=== PATIENT | male | born 1965 | race African-American/Black ===

== ENCOUNTER 2020-06-16 11:11 | Emergency (ER) | payer OTHER ==
--- OUTSIDE RECORDS SUMMARY | 2020-06-16 11:52 | XMS REPORT | Continuity of Care Document ---
:1965 Author Organization [facility] t Address [address] [place] [address] Care Team Providers Name Role Phone Unavailable Unavailable Unavailable Problems Condition Condition Condition Status Onset Resolution Last Treating Co mments Source Name Details Category Date Date Treatment Clinician Date Other Other Disease Active [place] chest pain chest pain 03-10 alth 00:00: 00 Pain of Pain of Disease Active [place] upper upper Health abdomen abdomen Right-side Right-side Disease Active H arris d thoracic d thoracic alth back pain back pain Allergies, Adverse Reactions, Alerts Allergy Allergy Status Severity Reaction(s) Onset Inactive Treating Comm ents Source Name Type Date Date Clinician Aspirin Propensi Active Itching [place] ty to 03-10 Health adverse 00:00: reaction 00 s to drug Family History Family Member Diagnosis Comments Start Date Stop Date Source Natural father Cancer [facility] Natural mother Heart [facility] Social History Social Habit Start Date Stop Date Quantity Comments Source Sex Assigned At [facility] alth Alcohol intake 2019-02-28 2019-02-28 Current drinker [facility] 00:00:00 00:00:00 of alcohol (finding) Alcohol Comment 2011-08-20 2011-08-20 OCC [facility] alth 00:00:00 00:00:00 Smoking Status Start Date Stop Date Source Never smoker [facility] Medications This patient has no known medications. Procedures This patient has no known procedures. Plan of Care Planned Activity Planned Date Details Comments Source Future Scheduled Test 2020-05-21 00:00:00 IMM Influenza [facility] Seasonal May to October (>/= 19 yrs) [code = IMM Influenza Seasonal May to October (>/= 19 yrs)] Future Scheduled Test 2013 00:00:00 Screening for [facility] malignant neoplasm of colon (procedure) [code = 741868502] Encounters Start End Encounter Admission Attending Care Care Encounter Source Date/Time Date/Time Type Type Clinicians Facility Department ID 2019-02-28 2019-02-28 Emergency [facility] MED [id number] [place] 05:08:21 05:08:21 Health 2019-02-27 2019-02-27 Emergency [facility] [id number] [place] 17:09:26 17:09:26 Health 2018-03-10 2018-03-10 Emergency [facility] [id number] [place] 08:25:29 08:25:29 Health 2018-03-10 2018-03-10 Outpatient [facility] MED [id number] [place] 06:37:44 06:37:44 Health Results This patient has no known results.
--- OUTSIDE RECORDS SUMMARY | 2020-06-16 11:52 | XMS REPORT | Clinical Summary ---
:1965 Author Organization [facility] Address [address] [place] [id number] Care Team Providers Name Role Phone Unavailable Primary Care Provider Unavailable Allergies Active Allergy Reactions Severity Noted Date Comments Aspirin Itching 03/10/2018 No Known Allergies 11/02/2011 Medications No known medications Active Problems Problem Noted Date Other chest pain 03/10/2018 Pain of upper abdomen Right-sided thoracic back pain Family History Medical History Relation Name Comments Cancer Father colon, lung Heart Mother Relation Name Status Comments Father Alive Mother Alive Social History Tobacco Use Types Packs/Day Years Used Date Never Smoker Smokeless Tobacco: Never Used Alcohol Use Drinks/Week oz/Week Comments Yes OCC Sex Assigned at Date Recorded Not on file Job Start Date Occupation Industry Not on file Not on file Not on file Travel History Travel Start Travel End No recent travel history available. Last Filed Vital Signs Not on file Plan of Treatment Health Maintenance Due Date Last Done Comments Colorectal Cancer Scrn Annual (FIT/FOBT) Age 50 to 75 2013 IMM Influenza Seasonal May to October (>/= 19 yrs) 05/21/2020 Results Not on fileafter 06/16/2019 Insurance Payer Benefit Plan / Subscriber ID Effective Dates Phone Addre ss Type Group COMMERCIAL GENERIC COMMERCIAL GENERIC xxxxxxxxx 2017-Present OON (Work)
[2020-06-16 12:36] LABS: Absolute Lymphocytes (CBC) 2.6 K/uL (0.7-4.9); Basophils % 0.9 % (0-1.3); Hematocrit 42.9 % (39.6-49.0); Lymphocytes % 41.9 % (15.3-44.8); MPV 8.3 fL (7.6-11.3); RBC Red Blood Cell Count 4.65 M/uL (4.33-5.43)
[2020-06-16 12:49] LABS: BUN Blood Urea Nitrogen 14 mg/dL (7-18); Bicarbonate 32 mmol/L (21-32); Glucose Level 78 mg/dL (74-106); Potassium 3.9 mmol/L (3.5-5.1); Sodium Level 140 mmol/L (136-145)
--- NOTE | 2020-06-16 12:57 | RAD REPORT ---
EXAM DESCRIPTION: CT - Stone Protocol - 06/16/2020 12:41 pm CLINICAL HISTORY: Flank pain. Abd pain;Flank pain COMPARISON: No comparisons TECHNIQUE: Axial images were obtained without oral or IV contrast. Lack of contrast limits solid org an and vascular assessment. The [id number] spans the entirety of the system partially obscuring uppermost abdomen and lung bases. Coronal reformatted images were obtained and reviewed. All CT scans are performed using dose optimization technique as appropriate and may include automated exposure control or mA/KV adjustment according to patient size. FINDINGS: The lower lung mckenna are clear. Imaged portions of the liver and spleen show no suspicious findings on non-contrast imaging. The panc reas and adrenal glands are normal. No pathologic lymphadenopathy in the abdomen or pelvis. No urinary tract stones or obstructive uropathy. No bowel obstruction, free air, free fluid or abscess. Normal appendix noted. Significant stool is pr esent throughout the colon. No significant bony abnormality. IMPRESSION: No urinary tract stones or obstructive uropathy. Significant stool is present throughout the colon.
[2020-06-16 13:00] LABS: Urine Blood TRACE (NEG); Urine Glucose NEGATIVE (NEG); Urine Protein NEGATIVE (NEG); Urine Specific Gravity 1.025 (1.005-1.030); Urine pH 7.5 (5.0-7.0)
[2020-06-16 13:01] LABS: Urine Bacteria NONE SEEN /HPF (NONE SEEN); Urine Culture Reflex Order NOT NEEDED; Urine RBC <5 /HPF (NONE SEEN)
--- NOTE | 2020-06-16 13:10 | EDPHYS ---
Physician Documentation [facility] Name: Vahe Alexandra Jr Age: 55 yrs Sex: Male : 1965 Arrival Date: 06/16/2020 Time: 11:13 Bed 16 Private MD: ED Physician Tom Sebastian HPI: 06/16 13:05 This 55 yrs old Black Male presents to ER via Ambulatory with complaints of Back Pain. kb 13:05 The patient presents with pain that is acute. kb 13:05 The symptoms are located in the low back. Onset: The symptoms/episode began/occurred 2 kb week(s) ago, and became worse 2 day(s) ago. The pain does not radiate. Associated signs and symptoms: Pertinent positives: abdominal pain, Pertinent negatives: chest pain, constipation, dysuria, fever, headache, hematuria, incontinence, nausea, numbness, tingling, urinary retention, vomiting, weakness. The problem was sustained from unknown cause. Modifying factors: The patient symptoms are alleviated by nothing, the patient symptoms are aggravated by any movement. Severity of symptoms: At their worst the symptoms were moderate, in the emergency department the symptoms are unchanged. The patient has not experienced similar symptoms in the past. The patient has not recently seen a physician. Pt reports pain to low back for 2 weeks that is now in lower abdomen as well. "It feels like I strained something." Denies urinary symptoms, fever, n/v/d, injury.. Historical: - Allergies: 11:37 Aspirin; ca1 - Home Meds: 11:37 None [Active]; ca1 - PMHx: 11:37 Gastric Reflux; ca1 - PSHx: 11:37 neck sx; ca1 - Immunization history:: Adult Immunizations up to date, Flu vaccine is not up to date. - Social history:: Smoking status: Patient denies any tobacco usage or history of. Patient/guardian denies using alcohol, the patient reports quitting approximately 15 years ago. ROS: 13:04 Constitutional: Negative for fever, chills, and weight loss, Cardiovascular: Negative kb for chest pain, palpitations, and edema, Respiratory: Negative for shortness of breath, cough, wheezing, and pleuritic chest pain, : Negative for injury, bleeding, discharge, and swelling, MS/Extremity: Negative for injury and deformity, Skin: Negative for injury, rash, and discoloration, Neuro: Negative for headache, weakness, numbness, tingling, and seizure. 13:04 Back: Positive for pain at rest, of the low back area. 13:04 Abdomen/GI: Positive for abdominal pain, Negative for nausea, vomiting, and diarrhea. kb Exam: 13:04 Constitutional: This is a well developed, well nourished patient who is awake, alert, kb and in no acute distress. Head/Face: Normocephalic, atraumatic. Chest/axilla: Normal chest wall appearance and motion. Nontender with no deformity. No lesions are appreciated. Cardiovascular: Regular rate and rhythm with a normal S1 and S2. No gallops, murmurs, or rubs. Normal PMI, no JVD. No pulse deficits. Respiratory: Lungs have equal breath sounds bilaterally, clear to auscultation and percussion. No rales, rhonchi or wheezes noted. No increased work of breathing, no retractions or nasal flaring. Abdomen/GI: Soft, non-tender, with normal bowel sounds. No distension or tympany. No guarding or rebound. No evidence of tenderness throughout. Back: No spinal tenderness. No costovertebral tenderness. Full range of motion. Skin: Warm, dry with normal turgor. Normal color with no rashes, no lesions, and no evidence of cellulitis. MS/ Extremity: Pulses equal, no cyanosis. Neurovascular intact. Full, normal range of motion. Neuro: Awake and alert, GCS 15, oriented to person, place, time, and situation. Cranial nerves II-XII grossly intact. Motor strength 5/5 in all extremities. Sensory grossly intact. Cerebellar exam normal. Normal gait. Vital Signs: 11:35 BP 154 / 95; Pulse 58; Resp 16 S; Temp 98.2(TE); Pulse Ox 100% on R/A; Weight 72.57 kg ca1 (R); Height 5 ft. 6 in. (167.64 cm) (R); Pain 10/10; 12:30 BP 136 / 94; Pulse 54; Resp 16; Pulse Ox 100% ; bp 13:22 BP 145 / 97; Pulse 58; Resp 16; Temp 98; Pulse Ox 100% ; bp 11:35 Body Mass Index 25.82 (72.57 kg, 167.64 cm) ca1 MDM: 11:57 Patient medically screened. kb 13:03 Data reviewed: vital signs, nurses notes. Data interpreted: Pulse oximetry: on room air kb is 100 %. Interpretation: normal. Counseling: I had a detailed discussion with the patient and/or guardian regarding: the historical points, exam findings, and any diagnostic results supporting the discharge/admit diagnosis, lab results, radiology results, the need for outpatient follow up, a family practitioner, to return to the emergency department if symptoms worsen or persist or if there are any questions or concerns that arise at home. 06/16 11:45 Order name: Urine Microscopic Only kb 06/16 12:13 Order name: Basic Metabolic Panel kb 06/16 12:13 Order name: CBC with Diff kb 06/16 12:39 Order name: CBC with Automated Diff; Complete Time: 12:42 EDMS 06/16 12:50 Order name: Basic Metabolic Panel; Complete Time: 13:03 EDMS 06/16 12:58 Order name: Urine Dipstick--Ancillary (enter results) bd 06/16 11:45 Order name: Urine Dipstick-Ancillary (obtain specimen); Complete Time: 11:58 kb 06/16 12:13 Order name: IV Saline Lock; Complete Time: 12:28 kb 06/16 12:13 Order name: Labs collected and sent; Complete Time: 12:28 kb 06/16 12:13 Order name: CT Stone Protocol 06/16 12:57 Order name: CT; Complete Time: 13:03 EDMS 06/16 13:00 Order name: Urine Dipstick-Ancillary; Complete Time: 13:03 EDOH 06/16 13:02 Order name: Urine Microscopic Only; Complete Time: 13:03 EDMS Administered Medications: No medications were administered Disposition: 06/17 11:53 Co-signature as Attending Physician, Tom Sebastian MD I agree with the assessment and jaya plan of care. Disposition: 06/16/20 13:09 Discharged to Home. Impression: Low back pain. - Condition is Stable. - Discharge Instructions: Back Injury Prevention, [id number], Back Pain, Adult, Kmsp-de-Gfef, Back Exercises, Rygp-vb-[id number]. - Prescriptions for Cyclobenzaprine 10 mg Oral Tablet - take 1 tablet by ORAL route every 8 hours As needed; 21 tablet. - Medication Reconciliation Form, Thank You Letter, Antibiotic Education, Prescription Opioid Use, Work release form form. - Follow up: Emergency Department; When: As needed; Reason: Worsening of condition. Follow up: Private Physician; When: 2 - 3 days; Reason: Recheck today's complaints, Continuance of care, Re-evaluation by your physician. Signatures: Dispatcher [employer] EDMS Zaria Trinidad, FIELD IDENTIFICATION SPECIALIST-C FIELD IDENTIFICATION SPECIALIST-Ckb Tom Sebastian MD MD cha Peltier, Brian RN RN bp AcAlva malone RN RN ca1 Corrections: (The following items were deleted from the chart) 06/16 13:05 13:04 Constitutional: Negative for fever, chills, and weight loss, Cardiovascular: kb Negative for chest pain, palpitations, and edema, Respiratory: Negative for shortness of breath, cough, wheezing, and pleuritic chest pain, Abdomen/GI: Negative for abdominal pain, nausea, vomiting, diarrhea, and constipation, : Negative for injury, bleeding, discharge, and swelling, MS/Extremity: Negative for injury and deformity, Skin: Negative for injury, rash, and discoloration, Neuro: Negative for headache, weakness, numbness, tingling, and seizure, kb 13:22 13:09 06/16/2020 13:09 Discharged to Home. Impression: Low back pain. Condition is bp Stable. Forms are Medication Reconciliation Form, Thank You Letter, Antibiotic Education, Prescription Opioid Use. Follow up: Emergency Department; When: As needed; Reason: Worsening of condition. Follow up: Private Physician; When: 2 - 3 days; Reason: Recheck today's complaints, Continuance of care, Re-evaluation by your physician. kb
--- NOTE | 2020-06-16 13:10 | ER ---
Nurse's Notes [facility] Name: Vahe Alexandra Jr Age: 55 yrs Sex: Male : 1965 Arrival Date: 06/16/2020 Time: 11:13 Bed 16 Private MD: Diagnosis: Low back pain Presentation: 06/16 11:34 Chief complaint: Patient states: Lower back and lower abdominal pain x 2 weeks worse in ca1 the last 2 days. Denies N/V/D. Denies Urinary symptoms. Denies fever. Denies recent injury to the back. 11:35 Coronavirus screen: Client denies travel out of the [place] in the last 14 days. At this ca1 time, the client does not indicate any symptoms associated with coronavirus-19. The client denies any previous COVID testing. Ebola Screen: Patient negative for fever greater than or equal to 101.5 degrees Fahrenheit, and additional compatible Ebola Virus Disease symptoms Patient denies exposure to infectious person. Patient denies travel to an Ebola-affected area in the 21 days before illness onset. No symptoms or risks identified at this time. Initial Sepsis Screen: Does the patient meet any 2 criteria? No. Patient's initial sepsis screen is negative. Does the patient have a suspected source of infection? No. Patient's initial sepsis screen is negative. Risk Assessment: Do you want to hurt yourself or someone else? Patient reports no desire to harm self or others. Onset of symptoms was June 16, 2020. 11:35 Method Of Arrival: Ambulatory ca1 11:35 Acuity: MICHAEL 3 ca1 Triage Assessment: 11:40 General: Appears in no apparent distress. uncomfortable, Behavior is cooperative, bp appropriate for age, anxious. Pain: Complains of pain in low back area, right lower quadrant and left lower quadrant. EENT: No deficits noted. Neuro: No deficits noted. Cardiovascular: No deficits noted. Respiratory: No deficits noted. GI: Reports lower abdominal pain. : No signs and/or symptoms were reported regarding the genitourinary system. Derm: No deficits noted. Musculoskeletal: Circulation, motion, and sensation intact. Range of motion: intact in all extremities. Historical: - Allergies: 11:37 Aspirin; ca1 - Home Meds: 11:37 None [Active]; ca1 - PMHx: 11:37 Gastric Reflux; ca1 - PSHx: 11:37 neck sx; ca1 - Immunization history:: Adult Immunizations up to date, Flu vaccine is not up to date. - Social history:: Smoking status: Patient denies any tobacco usage or history of. Patient/guardian denies using alcohol, the patient reports quitting approximately 15 years ago. Screenin:40 Abuse screen: Denies threats or abuse. Denies injuries from another. Nutritional bp screening: No deficits noted. Tuberculosis screening: No symptoms or risk factors identified. Fall Risk None identified. Assessment: 11:40 General: SEE TRIAGE NOTE. Neuro: Oriented to Appropriate for age Moves all extremities. bp Full function Gait is steady. 13:20 Reassessment: PT D/C HOME AMBULATORY, DX WITH LUMBAR PAIN. bp Vital Signs: 11:35 BP 154 / 95; Pulse 58; Resp 16 S; Temp 98.2(TE); Pulse Ox 100% on R/A; Weight 72.57 kg ca1 (R); Height 5 ft. 6 in. (167.64 cm) (R); Pain 10/10; 12:30 BP 136 / 94; Pulse 54; Resp 16; Pulse Ox 100% ; bp 13:22 BP 145 / 97; Pulse 58; Resp 16; Temp 98; Pulse Ox 100% ; bp 11:35 Body Mass Index 25.82 (72.57 kg, 167.64 cm) ca1 ED Course: 11:13 Patient arrived in ED. as 11:35 Triage completed. ca1 11:37 Arm band placed on right wrist. ca1 11:40 Patient has correct armband on for positive identification. Bed in low position. Call bp light in reach. Side rails up X2. 11:57 Zaria Trinidad FNP-C is PHCP. kb 11:57 Tom Sebastian MD is Attending Physician. kb 11:58 Erich Chung, JOSE is Primary Nurse. bp 11:58 Urine Microscopic Only Sent. ca1 12:28 Inserted saline lock: 20 gauge in left antecubital area, using aseptic technique. Blood dh4 collected. 12:55 Basic Metabolic Panel Sent. bp 12:55 CBC with Diff Sent. bp 13:21 No provider procedures requiring assistance completed. IV discontinued, intact, bp bleeding controlled, No redness/swelling at site. Pressure dressing applied. Administered Medications: No medications were administered Outcome: 13:09 Discharge ordered by . kb 13:21 Discharged to home ambulatory. bp 13:21 Condition: stable 13:21 Discharge instructions given to patient, Instructed on discharge instructions, follow up and referral plans. medication usage, Demonstrated understanding of instructions, follow-up care, medications, Prescriptions given X 1. 13:22 Patient left the ED. bp Signatures: Zaria Trinidad, ENTRY LEVEL RECRUITER-C ENTRY LEVEL RECRUITER-Dianelys Mann Brian, RN RN bp Alva Womack RN RN [facility] Shahab Meneses [facility]
[2020-06-16 13:58] VITALS: O2SAT 100
[2020-06-16 14:03] VITALS: BP 145/97; TEMP 98
== END 2020-06-16 13:22 | disposition home or self-care (01) ==
LOC: ER 11:11
DX: M54.5 Low back pain (principal); Z88.6 Allergy status to analgesic agent
CPT/HCPCS: 36415; 74176; 76377; 80048; 81003; 81015; 85025; 99283

== ENCOUNTER 2021-02-17 06:57 | Emergency (ER) | payer OTHER ==
--- OUTSIDE RECORDS SUMMARY | 2021-02-17 07:00 | XMS REPORT | Continuity of Care Document ---
:1965 Author Organization [facility] t Address [address] [place] [address] Care Team Providers Name Role Phone Unavailable Unavailable Unavailable Problems Condition Condition Condition Status Onset Resolution Last Treating Co mments Source Name Details Category Date Date Treatment Clinician Date Other Other Disease Active [place] chest pain chest pain 03-10 alth 00:00: 00 Pain of Pain of Disease Active [place] upper upper Health abdomen abdomen Right-side Right-side Disease Active H arris d thoracic d thoracic alth back pain back pain Allergies, Adverse Reactions, Alerts Allergy Allergy Status Severity Reaction(s) Onset Inactive Treating Comm ents Source Name Type Date Date Clinician Aspirin Propensi Active Itching [place] ty to 03-10 Health adverse 00:00: reaction 00 s to drug Family History Family Member Diagnosis Comments Start Date Stop Date Source Natural father Cancer [facility] Natural mother Heart [facility] Social History Social Habit Start Date Stop Date Quantity Comments Source Sex Assigned At [facility]th Tobacco use and 2019-02-28 2019-02-28 Never used [facility]th exposure 00:00:00 00:00:00 Alcohol intake 2019-02-28 2019-02-[address] [facility] 00:00:00 00:00:00 of alcohol (finding) Alcohol Comment 2011-08-20 2011-08-20 OCC [facility] alth 00:00:00 00:00:00 Smoking Status Start Date Stop Date Source Never smoker [facility] Medications This patient has no known medications. Procedures This patient has no known procedures. Plan of Care Planned Activity Planned Date Details Comments Source Future Scheduled Test 2021-05-21 00:00:00 IMM Influenza [facility] Seasonal May to October (>/= 19 yrs) [code = IMM Influenza Seasonal May to October (>/= 19 yrs)] Future Scheduled Test 2013 00:00:00 Screening for [facility] malignant neoplasm of colon (procedure) [code = [id number]] Future Scheduled Test 1975 00:00:00 COVID-19 Vaccine (1) [facility] [code = COVID-19 Vaccine (1)] Encounters Start End Encounter Admission Attending Care Care Encounter Source Date/Time Date/Time Type Type Clinicians Facility Department ID 2019-02-28 2019-02-28 Emergency [facility] [id number] [place] 05:08:21 05:08:21 Health 2019-02-27 2019-02-27 Emergency [facility] [id number] [place] 17:09:26 17:09:26 Health 2018-03-10 2018-03-10 Emergency [facility] [id number] [place] 08:25:29 08:25:29 Health 2018-03-10 2018-03-10 Outpatient [facility] [id number] [place] 06:37:44 06:37:44 Health Results This patient has no known results.
[2021-02-17] MEDS ORDERED: METHYLPREDNISOLONE 125 MG INJ ONE (08:21)
[2021-02-17] MEDS ORDERED: NA CHLORIDE 0.9% 100 ML ONE (08:22)
[2021-02-17] MEDS ORDERED: KETOROLAC 30 MG/ML INJ ONE (08:22)
[2021-02-17] MEDS ORDERED: HYDROCODONE/APAP 10/325 TAB ONE (08:22)
[2021-02-17] MEDS ORDERED: METHOCARBAMOL 1,000 MG/10 ML VIAL IV ONE (08:22)
--- NOTE | 2021-02-17 09:14 | EDPHYS ---
Physician Documentation [facility] Name: Vahe Alexandra Jr Age: 56 yrs Sex: Male : 1965 Arrival Date: 02/17/2021 Time: 07:00 Bed 16 Private MD: ED Physician Slim Bhatti Historical: - Allergies: 02/17 07:15 Aspirin; ph - PMHx: 07:15 Gastric Reflux; ph - Immunization history:: Adult Immunizations unknown. - Social history:: Smoking status: Patient denies any tobacco usage or history of. Vital Signs: 07:13 BP 156 / 99; Pulse 68; Resp 18; Temp 98.1; Pulse Ox 98% on R/A; Weight 77.11 kg; Height ph 5 ft. 6 in. (167.64 cm); 09:11 BP 149 / 93; Pulse 65; Resp 15; Temp 98.1; Pulse Ox 98% ; bp 07:13 Body Mass Index 27.44 (77.11 kg, 167.64 cm) ph MDM: 09:13 Patient medically screened. kdr Administered Medications: 08:10 Drug: Ketorolac 15 mg Route: IVP; Site: left hand; bp 09:12 Follow up: Response: Pain is decreased bp 08:10 Drug: SOLU-Medrol (methylPrednisoLONE) 125 mg Route: IVP; Site: left hand; bp 09:12 Follow up: Response: No adverse reaction bp 08:10 Drug: Robaxin (methocarbamol) 1 grams Route: IVPB; Infused Over: 1 hrs; Site: left hand;bp 09:12 Follow up: IV Status: Completed infusion; IV Intake: 50ml bp 08:10 Drug: Hydrocodone-Acetaminophen (10 mg-500 mg) 1 tabs Route: PO; bp 09:12 Follow up: Response: Pain is decreased bp Disposition Summary: 02/17/21 09:13 Discharge Ordered Location: Home kdr Problem: an acute exacerbation kdr Symptoms: have improved kdr Condition: Stable kdr Diagnosis - Radiculopathy, cervical region kdr - Cervical disc disorder with radiculopathy kdr Followup: kdr - With: Private Physician - When: 2 - 3 days - Reason: If symptoms return, Further diagnostic work-up, Recheck today's complaints, Continuance of care, Re-evaluation by your physician Discharge Instructions: - Discharge Summary Sheet kdr - Neuropathic Pain kdr - Cervical Radiculopathy, [id number] kdr - Radicular Pain kdr Forms: - Medication Reconciliation Form kdr - Thank You Letter kdr - Prescription Opioid Use kdr - Work release form bd Prescriptions: - ketorolac 10 mg Oral tablet - take 1 tablet by ORAL route every 6 hours not to exceed 40 mg in 24hrs; 12 kdr tablet; Refills: 0, Product Selection Permitted - Cyclobenzaprine 10 mg Oral Tablet - take 1 tablet by ORAL route every 8 hours As needed; 15 tablet; Refills: 0, kdr Product Selection Permitted - Medrol (Luis) 4 mg Oral Tablets, Dose Pack - take 1 tablet by ORAL route as directed - follow package instructions; 1 kdr packet; Refills: 0, Product Selection Permitted - Tramadol 50 mg Oral Tablet - take 1 tablet by ORAL route every 8 hours as needed; 12 tablet; Refills: 0, kdr Product Selection Permitted Signatures: Slim Bhatti MD MD kdr Shawna Sun RN RN ph Erich Chung, RN RN bp
--- NOTE | 2021-02-17 09:14 | ER ---
Nurse's Notes [facility] Name: Vahe Alexandra Jr Age: 56 yrs Sex: Male : 1965 Arrival Date: 02/17/2021 Time: 07:00 Bed 16 Private MD: Diagnosis: Radiculopathy, cervical region;Cervical disc disorder with radiculopathy Presentation: 02/17 07:13 Chief complaint: Patient states: Neck pain radiating to L arm, hx of bulging discs, ph states, " I have an appointment about it but I couldn't get in until Mar". Denies recent injury. Coronavirus screen: Client denies travel out of the [place] in the last 14 days. At this time, the client does not indicate any symptoms associated with coronavirus-19. Ebola Screen: No symptoms or risks identified at this time. Initial Sepsis Screen: Does the patient meet any 2 criteria? No. Patient's initial sepsis screen is negative. Does the patient have a suspected source of infection? No. Patient's initial sepsis screen is negative. Risk Assessment: Do you want to hurt yourself or someone else? Patient reports no desire to harm self or others. Onset of symptoms was February 17, 2021. 07:13 Method Of Arrival: Ambulatory ph 07:13 Acuity: MICHAEL 4 ph Triage Assessment: 07:15 General: Appears distressed, uncomfortable, Behavior is cooperative, appropriate for bp age, anxious. Pain: Complains of pain in back. EENT: No deficits noted. Neuro: Reports BACK PAIN. Cardiovascular: No deficits noted. Respiratory: No deficits noted. GI: No signs and/or symptoms were reported involving the gastrointestinal system. : No signs and/or symptoms were reported regarding the genitourinary system. Derm: No deficits noted. Musculoskeletal: No deficits noted. Historical: - Allergies: 07:15 Aspirin; ph - PMHx: 07:15 Gastric Reflux; ph - Immunization history:: Adult Immunizations unknown. - Social history:: Smoking status: Patient denies any tobacco usage or history of. Screenin:15 Abuse screen: Denies threats or abuse. Denies injuries from another. Nutritional bp screening: No deficits noted. Tuberculosis screening: No symptoms or risk factors identified. Fall Risk None identified. Assessment: 07:15 General: SEE TRIAGE NOTE. bp 09:25 Reassessment: PT D/C HOME AMBULATORY WITH FAMILY, DX WITH CERVICAL RADICULOPATHY. bp Neuro: Level of Consciousness is awake, alert, obeys commands, Oriented to Appropriate for age Moves all extremities. Full function. Vital Signs: 07:13 BP 156 / 99; Pulse 68; Resp 18; Temp 98.1; Pulse Ox 98% on R/A; Weight 77.11 kg; Height ph 5 ft. 6 in. (167.64 cm); 09:11 BP 149 / 93; Pulse 65; Resp 15; Temp 98.1; Pulse Ox 98% ; bp 07:13 Body Mass Index 27.44 (77.11 kg, 167.64 cm) ph ED Course: 07:00 Patient arrived in ED. as 07:15 Triage completed. ph 07:15 Arm band placed on Patient placed in an exam room, on a stretcher. ph 07:15 Patient has correct armband on for positive identification. Bed in low position. Call bp light in reach. Side rails up X2. 07:16 Law Scott is Primary Nurse. ad5 07:16 Primary Nurse role handed off by Law Scott bp 07:16 Erich Chung, JOSE is Primary Nurse. bp 07:45 Slim Bhatti MD is Attending Physician. kdr 08:10 Inserted saline lock: 22 gauge in left hand, using aseptic technique. bp 09:11 No provider procedures requiring assistance completed. IV discontinued, intact, bp bleeding controlled, No redness/swelling at site. Pressure dressing applied. Administered Medications: 08:10 Drug: Ketorolac 15 mg Route: IVP; Site: left hand; bp 09:12 Follow up: Response: Pain is decreased bp 08:10 Drug: SOLU-Medrol (methylPrednisoLONE) 125 mg Route: IVP; Site: left hand; bp 09:12 Follow up: Response: No adverse reaction bp 08:10 Drug: Robaxin (methocarbamol) 1 grams Route: IVPB; Infused Over: 1 hrs; Site: left hand;bp 09:12 Follow up: IV Status: Completed infusion; IV Intake: 50ml bp 08:10 Drug: Hydrocodone-Acetaminophen (10 mg-500 mg) 1 tabs Route: PO; bp 09:12 Follow up: Response: Pain is decreased bp Intake: 09:12 IV: 50ml; Total: 50ml. bp Outcome: 09:13 Discharge ordered by . kdr 09:26 Discharged to home ambulatory, with family. bp 09:26 Condition: stable 09:26 Discharge instructions given to patient, Instructed on discharge instructions, follow up and referral plans. medication usage, Demonstrated understanding of instructions, follow-up care, medications, Prescriptions given X 4. 09:27 Patient left the ED. bp Signatures: Slim Bhatti MD MD kdr Martinez, Amelia as Hall, Patricia, RN RN ph Erich Chung RN RN bp Law Scott
[2021-02-17 09:32] VITALS: TEMP 98.1; O2SAT 98
[2021-02-17 09:34] VITALS: BP 149/93
== END 2021-02-17 09:27 | disposition home or self-care (01) ==
LOC: ER 06:57
DX: M54.12 Radiculopathy, cervical region (principal); Z88.6 Allergy status to analgesic agent
CPT/HCPCS: 96365; 96375; 99283; J2930; J2800

== ENCOUNTER 2021-03-01 11:47 | Emergency (ER) | payer OTHER ==
--- OUTSIDE RECORDS SUMMARY | 2021-03-01 11:50 | XMS REPORT | Continuity of Care Document ---
:1965 Author Organization [facility] t Address [address] [place] [address] Care Team Providers Name Role Phone Unavailable Unavailable Unavailable Problems Condition Condition Condition Status Onset Resolution Last Treating Co mments Source Name Details Category Date Date Treatment Clinician Date Other Other Disease Active [place] chest pain chest pain 03-10 alth 00:00: 00 Pain of Pain of Disease Active [place] upper upper Health abdomen abdomen Right-side Right-side Disease Active H arris d thoracic d thoracic alth back pain back pain Allergies, Adverse Reactions, Alerts Allergy Allergy Status Severity Reaction(s) Onset Inactive Treating Comm ents Source Name Type Date Date Clinician Aspirin Propensi Active Itching [place] ty to 03-10 Health adverse 00:00: reaction 00 s to drug Family History Family Member Diagnosis Comments Start Date Stop Date Source Natural father Cancer [facility] Natural mother Heart [facility] Social History Social Habit Start Date Stop Date Quantity Comments Source Sex Assigned At [facility] Tobacco use and 2019-02-28 2019-02-28 Never used [facility] exposure 00:00:00 00:00:00 Alcohol intake 2019-02-28 2019-02-28 [facility] 00:00:00 00:00:00 of alcohol (finding) Alcohol Comment 2011-08-20 2011-08-20 OCC [facility] 00:00:00 00:00:00 Smoking Status Start Date Stop Date Source Never smoker [facility] Medications This patient has no known medications. Procedures This patient has no known procedures. Plan of Care Planned Activity Planned Date Details Comments Source Future Scheduled Test 2021-05-21 00:00:00 IMM Influenza [facility] Seasonal May to October (>/= 19 yrs) [code = IMM Influenza Seasonal May to October (>/= 19 yrs)] Future Scheduled Test 2013 00:00:00 Screening for [facility] malignant neoplasm of colon (procedure) [code = 964854094] Future Scheduled Test 1975 00:00:00 COVID-19 Vaccine (1) [facility] [code = COVID-19 Vaccine (1)] Encounters Start End Encounter Admission Attending Care Care Encounter Source Date/Time Date/Time Type Type Clinicians Facility Department ID 2019-02-28 2019-02-28 Emergency [facility] [id number] [place] 05:08:21 05:08:21 Health 2019-02-27 2019-02-27 Emergency [facility] [id number] [place] 17:09:26 17:09:26 Health 2018-03-10 2018-03-10 Emergency [facility] [id number] [place] 08:25:29 08:25:29 Health 2018-03-10 2018-03-10 Outpatient [facility] [id number] [place] 06:37:44 06:37:44 Health Results This patient has no known results.
[2021-03-01 13:01] LABS: Absolute Lymphocytes (CBC) 2.5 K/uL (0.7-4.9); Hematocrit 44.5 % (39.6-49.0); Lymphocytes % 31.9 % (15.3-44.8); MPV 8.2 fL (7.6-11.3); RBC Red Blood Cell Count 4.83 M/uL (4.33-5.43)
--- NOTE | 2021-03-01 13:16 | RAD REPORT ---
EXAM DESCRIPTION: CT - Chest For Pe Angio - 03/01/2021 1:04 pm CLINICAL HISTORY: posterior thoracic pain COMPARISON: No comparisons TECHNIQUE: Dynamically enhanced 3 mm thick images of the chest were obtained during administration o f approximately 150mL Isovue 370 IV contrast. Coronal and oblique MIP reconstruction images were gene rated and reviewed. Exam utilizes a protocol to evaluate the pulmonary arterial tree. All CT scans are performed using dose optimization technique as appropriate and may include automated exposure control or mA/KV adjustment according to patient size. FINDINGS: No pulmonary emboli are identified. Far peripheral branch assessment is more limited due t o the amount of respiratory motion. Significant pulmonary embolic disease in the far peripheral branc hes not suspected. The aorta as imaged shows no acute or suspicious finding. No pericardial thickening or effusion. No infiltrate or mass in the lung parenchyma. No pleural effusion or pleural thickening. Motion in ea ch lung base accentuates the interstitial pattern which could potentially mask a mild edema or infilt rate. No mediastinal or hilar suspicious masses. No chest wall masses or abnormal axillary lymphadenopathy. No compression fracture or acute bony finding identifiable. No paraspinal soft tissue mass. Central c anal detail is inherently limited. IMPRESSION: No pulmonary emboli identified. No other significant or suspicious findings.
[2021-03-01 13:18] LABS: BUN Blood Urea Nitrogen 12 mg/dL (7-18); Bicarbonate 29 mmol/L (21-32); Glucose Level 72 mg/dL (74-106); Potassium 3.9 mmol/L (3.5-5.1); Sodium Level 139 mmol/L (136-145)
--- NOTE | 2021-03-01 13:25 | EDPHYS ---
Physician Documentation [facility] Name: Vahe Alexandra Jr Age: 56 yrs Sex: Male : 1965 Arrival Date: 03/01/2021 Time: 11:50 Bed 8 Private MD: ED Physician Fredy Bella HPI: 03/01 13:20 This 56 yrs old Black Male presents to ER via Ambulatory with complaints of Back Pain. rn 13:20 The patient presents with pain that is acute, with no known mechanism of injury. The rn symptoms are located in the left scapular area and left subscapular area. Onset: The symptoms/episode began/occurred 1 month(s) ago. The pain radiates to the left arm. Associated signs and symptoms: Pertinent positives: none Pertinent negatives: abdominal pain, chest pain, constipation, dysuria, fever, headache, hematuria, incontinence, nausea, numbness, tingling, urinary retention, vomiting, weakness. Modifying factors: The patient symptoms are alleviated by nothing, the patient symptoms are aggravated by lifting, movement. Severity of symptoms: At their worst the symptoms were moderate, in the emergency department the symptoms have improved. The patient has experienced similar episodes in the past. The patient has been recently seen by a physician:. Reports left scapular and subscapular pain for about 1 month, seen here last week or so, given steroids and muscle relaxers and still not gone. No direct trauma. Reports radiates to left arm with tingling that is intermittent, no weakness. Has known cervical disc disease. NO chest pain or sob. No abd pain.. Historical: - Allergies: 11:58 Aspirin; ca1 - PMHx: 11:58 Gastric Reflux; ca1 - Immunization history:: Client reports receiving the 1st dose of the Covid vaccine, jose and jose Flu vaccine is up to date. - Social history:: Smoking status: Patient denies any tobacco usage or history of. - Family history:: not pertinent. - Hospitalizations: : No recent hospitalization is reported. ROS: 13:20 Constitutional: Negative for fever, chills, and weight loss, Eyes: Negative for injury, rn pain, redness, and discharge, Neck: Negative for injury, pain, and swelling, Cardiovascular: Negative for chest pain, palpitations, and edema, Respiratory: Negative for shortness of breath, cough, wheezing, and pleuritic chest pain, Abdomen/GI: Negative for abdominal pain, nausea, vomiting, diarrhea, and constipation, Back: Negative for injury : Negative for injury, bleeding, discharge, and swelling, MS/Extremity: Negative for injury and deformity, Skin: Negative for injury, rash, and discoloration, Neuro: Negative for headache, weakness, numbness, tingling, and seizure. Exam: 13:20 Constitutional: This is a well developed, well nourished patient who is awake, alert, rn and in no acute distress. Head/Face: Normocephalic, atraumatic. Eyes: Pupils equal round and reactive to light, extra-ocular motions intact. Lids and lashes normal. Conjunctiva and sclera are non-icteric and not injected. Cornea within normal limits. Periorbital areas with no swelling, redness, or edema. Neck: Trachea midline, no masses palpated, and no cervical lymphadenopathy. Supple, full range of motion without nuchal rigidity, or vertebral point tenderness. No Meningismus. Cardiovascular: Regular rate and rhythm. No pulse deficits. Respiratory: No increased work of breathing, no retractions or nasal flaring. Abdomen/GI: soft, non-tender Back: No spinal tenderness. + left periscapular reproducible pain with palpation, no swelling or masses Skin: Warm, dry MS/ Extremity: Pulses equal, no cyanosis Neuro: Awake and alert, GCS 15, oriented to person, place, time, and situation. Cranial nerves II-XII grossly intact. Motor strength 5/5 in all extremities. Sensory grossly intact. Cerebellar exam normal. Normal gait. Vital Signs: 11:54 BP 137 / 92; Pulse 74; Resp 16 S; Temp 97.3(TE); Pulse Ox 99% on R/A; Weight 79.38 kg ca1 (R); Height 5 ft. 6 in. (167.64 cm) (R); Pain 8/10; 13:00 BP 127 / 89; Pulse 70; Resp 18; Temp 97.9; Pulse Ox 99% on R/A; ph 11:54 Body Mass Index 28.25 (79.38 kg, 167.64 cm) ca1 MDM: 12:31 Patient medically screened. rn 13:20 Differential diagnosis: arthritis, chronic back pain, Fatigue Osteoarthritis rn Osteoporosis sprain, lung mass, thoracic mass, muscle spasm. Data reviewed: vital signs, nurses notes, lab test result(s), EKG, radiologic studies, and as a result, I will discharge patient. Counseling: I had a detailed discussion with the patient and/or guardian regarding: the historical points, exam findings, and any diagnostic results supporting the discharge/admit diagnosis, lab results, radiology results, the need for outpatient follow up, to return to the emergency department if symptoms worsen or persist or if there are any questions or concerns that arise at home. Special discussion: I discussed with the patient/guardian in detail that at this point there is no indication for admission to the hospital. It is understood, however, that if the symptoms persist or worsen the patient needs to return immediately for re-evaluation. Based on the history and exam findings, there is no indication for further emergent testing or inpatient evaluation. I discussed with the patient/guardian the need to see the back specialist for further evaluation of the symptoms. 03/01 12:44 Order name: CBC with Diff; Complete Time: 13:19 rn 03/01 12:44 Order name: Basic Metabolic Panel; Complete Time: 13:19 rn 03/01 12:44 Order name: IV Start; Complete Time: 13:37 rn 03/01 12:44 Order name: CT Chest For PE Angio; Complete Time: 13:19 rn 03/01 12:44 Order name: EKG; Complete Time: 12:45 rn 03/01 12:44 Order name: EKG - Nurse/Tech; Complete Time: 13:37 rn Administered Medications: No medications were administered Disposition Summary: 03/01/21 13:25 Discharge Ordered Location: Home rn Problem: new rn Symptoms: have improved rn Condition: Stable rn Diagnosis - Upper back pain rn - Muscle spasm of back rn Followup: rn - With: Private Physician - When: As needed - Reason: Recheck today's complaints, Re-evaluation by your physician Discharge Instructions: - Discharge Summary Sheet rn - Muscle Cramps and Spasms rn - Back Exercises, [id number] rn Forms: - Medication Reconciliation Form rn - Thank You Letter rn - Antibiotic rn advanced - Prescription Opioid Use rn - Work release form eb Signatures: Dispatcher [employer] Fredy Hernandez MD MD rn Acob, Cheryl, RN RN ca1
--- NOTE | 2021-03-01 13:25 | ER ---
Nurse's Notes [facility] Name: Vahe Alexandra Jr Age: 56 yrs Sex: Male : 1965 Arrival Date: 03/01/2021 Time: 11:50 Bed 8 Private MD: Diagnosis: Upper back pain;Muscle spasm of back Presentation: 03/01 11:54 Chief complaint: Patient states: L upper back pain radiates to the L arm x 1 month. ca1 Denies recent injury. Was here a week ago, was prescribed meds, not much relief. Coronavirus screen: Client denies travel out of the [place] in the last 14 days. At this time, the client does not indicate any symptoms associated with coronavirus-19. Ebola Screen: Patient negative for fever greater than or equal to 101.5 degrees Fahrenheit, and additional compatible Ebola Virus Disease symptoms Patient denies exposure to infectious person. Patient denies travel to an Ebola-affected area in the 21 days before illness onset. No symptoms or risks identified at this time. Initial Sepsis Screen: Does the patient meet any 2 criteria? No. Patient's initial sepsis screen is negative. Does the patient have a suspected source of infection? No. Patient's initial sepsis screen is negative. Risk Assessment: Do you want to hurt yourself or someone else? Patient reports no desire to harm self or others. Onset of symptoms was March 01, 2021. 11:54 Method Of Arrival: Ambulatory ca1 11:54 Acuity: MICHAEL 4 ca1 Historical: - Allergies: 11:58 Aspirin; ca1 - PMHx: 11:58 Gastric Reflux; ca1 - Immunization history:: Client reports receiving the 1st dose of the Covid vaccine, jose and jose Flu vaccine is up to date. - Social history:: Smoking status: Patient denies any tobacco usage or history of. - Family history:: not pertinent. - Hospitalizations: : No recent hospitalization is reported. Screenin:46 Abuse screen: Denies threats or abuse. Denies injuries from another. Nutritional ph screening: No deficits noted. Tuberculosis screening: No symptoms or risk factors identified. Fall Risk None identified. Assessment: 12:45 General: Appears in no apparent distress. comfortable, slender, well groomed, Behavior ph is calm, cooperative, appropriate for age. Pain: Complains of pain in left arm and left scapular area. Neuro: Level of Consciousness is awake, alert, obeys commands, Oriented to person, place, time, situation. Cardiovascular: Denies chest pain, shortness of breath, Capillary refill < 3 seconds in bilateral fingers Patient's skin is warm and dry. Respiratory: No deficits noted. Derm: Skin is intact, is healthy with good turgor, Skin is pink, warm \T\ dry. Musculoskeletal: Circulation, motion, and sensation intact. Range of motion: intact in all extremities. Vital Signs: 11:54 BP 137 / 92; Pulse 74; Resp 16 S; Temp 97.3(TE); Pulse Ox 99% on R/A; Weight 79.38 kg ca1 (R); Height 5 ft. 6 in. (167.64 cm) (R); Pain 8/10; 13:00 BP 127 / 89; Pulse 70; Resp 18; Temp 97.9; Pulse Ox 99% on R/A; ph 11:54 Body Mass Index 28.25 (79.38 kg, 167.64 cm) ca1 ED Course: 11:50 Patient arrived in ED. mr 11:57 Triage completed. ca1 11:58 Arm band placed on right wrist. ca1 12:22 Shawna Sun, RN is Primary Nurse. ph 12:31 Fredy Bella MD is Attending Physician. rn 12:46 Patient has correct armband on for positive identification. Bed in low position. Call ph light in reach. Side rails up X 1. Pulse ox on. NIBP on. Door closed. Noise minimized. Warm blanket given. 13:04 CT Chest For PE Angio In Process Unspecified. EDMS 13:59 No provider procedures requiring assistance completed. IV discontinued, intact, ph bleeding controlled, No redness/swelling at site. Pressure dressing applied. Administered Medications: No medications were administered Outcome: 13:25 Discharge ordered by . rn 13:59 Discharged to home ambulatory. ph 13:59 Condition: good 13:59 Discharge instructions given to patient, family, Instructed on discharge instructions, follow up and referral plans. Demonstrated understanding of instructions, follow-up care. 14:00 Patient left the ED. ph Signatures: Dispatcher [employer] EDIL JoyMarta mr Fredy Bella MD MD rn Hall, Patricia, RN RN ph Acob, Alva, RN RN ca1
[2021-03-01 14:21] VITALS: BP 137/92; TEMP 97.3; O2SAT 99
--- NOTE | 2021-03-01 16:03 | EKG ---
Test Date: 2021-03-01 Test Time: 13:15:16 Surfboard Designer: CUONG MEASUREMENT RESULTS: Intervals: Rate: 56 TX: 152 QRSD: 86 QT: 396 QTc: 382 [place]: P: 55 TX: 152 QRS: 37 T: 24 INTERPRETIVE STATEMENTS: Sinus bradycardia with sinus arrhythmia with occasional premature ventricular complexes Nonspecific T wave abnormality Abnormal ECG Compared to ECG 08/22/2006 03:46:52 Ventricular premature complex(es) now present T-wave abnormality still present Electronically Signed On 03-01-21 16:02:32 CDT by Russ Chilel
== END 2021-03-01 14:00 | disposition home or self-care (01) ==
LOC: ER 11:47
DX: M62.830 Muscle spasm of back (principal); Z88.6 Allergy status to analgesic agent
CPT/HCPCS: 93005; 85025; 80048; 36415; 82565; 71275; 99283; Q9967

== ENCOUNTER 2021-06-05 23:30 | Emergency (ER) | payer OTHER ==
[2021-06-06] MEDS ORDERED: NA CHLORIDE 0.9% 250 ML ONE (01:17)
[2021-06-06] MEDS ORDERED: CEFAZOLIN SODIUM 1 GM/VIAL ONE (01:17)
--- NOTE | 2021-06-06 01:29 | EDPHYS ---
Physician Documentation [facility] Name: Vahe Alexandra Jr Age: 56 yrs Sex: Male : 1965 Arrival Date: 06/05/2021 Time: 23:33 Bed 15 Private MD: ED Physician Tal Leahy HPI: 06/06 00:26 This 56 yrs old Black Male presents to ER via Wheelchair with complaints of Foot pm1 Injury, - Staple. 00:26 The patient presents with a puncture wound, Staple. The complaints affect the dorsum of pm1 left foot. Context: The problem was sustained at work, the patient is able to ambulate, Problem is a result from a previous injury: No. Onset: The symptoms/episode began/occurred 06/05 around 2100 at work. Associated signs and symptoms: Pertinent negatives numbness, tingling. Treatment prior to arrival includes: Seen by work physician. Had x-rays and tetanus immunization. Her physician attempted to remove staple but was unsuccessful so referred to the ER for further evaluation treatment. Severity of symptoms: in the emergency department the symptoms are unchanged. The patient has not experienced similar symptoms in the past. The patient has been recently seen by a physician: with similar presenting complaints, and was sent to the [facility] Emergency Department for further evaluation. Historical: - Allergies: 06/05 23:44 Aspirin; lp1 23:44 tramadol; lp1 - Home Meds: 23:44 None [Active]; lp1 - PMHx: 23:44 Gastric Reflux; lp1 - PSHx: 23:44 None; lp1 - Immunization history:: Adult Immunizations Last tetanus immunization: up to date June 05, 2021. - Social history:: Smoking status: Patient denies any tobacco usage or history of. ROS: 06/06 00:26 Constitutional: Negative for fever, chills, and weight loss, Cardiovascular: Negative pm1 for chest pain, palpitations, and edema, Respiratory: Negative for shortness of breath, cough, wheezing, and pleuritic chest pain. MS/extremity: Positive for puncture, of the dorsum of left foot, Negative for decreased range of motion, deformity. Skin: Positive for puncture, of the dorsum of left foot. All other systems are negative. Exam: 00:26 Constitutional: This is a well developed, well nourished patient who is awake, alert, pm1 and in no acute distress. Head/Face: Normocephalic, atraumatic. 00:26 Cardiovascular: Exam negative for acute changes, Rate: normal, Rhythm: regular, Pulses: no pulse deficits are appreciated. 00:26 Respiratory: Exam negative for acute changes, respiratory distress, shortness of breath. 00:26 Musculoskeletal/extremity: Extremities: grossly normal except: noted in the dorsum of left foot: puncture, Staple present sticking out from dorsum of foot. 00:26 Skin: Appearance: normal except for affected area, injury, puncture(s), that are deep, of the dorsum of left foot. 00:26 Neuro: Exam negative for acute changes, Orientation: is normal, Mentation: is normal, Motor: is normal, moves all fours. Vital Signs: 06/05 23:42 BP 150 / 106; Pulse 77; Resp 18; Temp 99.5(TE); Pulse Ox 100% on R/A; Weight 78.02 kg lp1 (R); Height 5 ft. 6 in. (167.64 cm); Pain 3/10; 06/06 02:03 BP 142 / 90; Pulse 71; Resp 14; Temp 98.9(O); Pulse Ox 100% on R/A; Pain 0/10; bc5 04:11 BP 145 / 87; Pulse 75; Resp 14; Temp 98.6(O); Pulse Ox 100% on R/A; Pain 0/10; bc5 06/05 23:42 Body Mass Index 27.76 (78.02 kg, 167.64 cm) lp1 MDM: 06/05 23:52 Patient medically screened. pm1 06/06 00:35 Counseling: I had a detailed discussion with the patient and/or guardian regarding: the pm1 historical points, exam findings, and any diagnostic results supporting the discharge/admit diagnosis, radiology results, the need to transfer to another facility. 00:49 Physician consultation: Erich Butcher DPM was contacted at 00:50, regarding consult, pm1 patient's condition, Will call back if bed availability present at [facility]. 01:06 Physician consultation: Erich Butcher DPM regarding regarding transfer, would like pm1 admission per Dr. Natalie Martinez at [facility]. 01:12 Data reviewed: vital signs. Data interpreted: Pulse oximetry: on room air is 100 %. pm1 Interpretation: normal. 06/06 00:49 Order name: CBC with Diff; Complete Time: 02:58 pm1 06/06 00:49 Order name: BMP; Complete Time: 02:58 pm1 06/05 23:48 Order name: Foot Left 3 View XRAY pm1 06/06 02:10 Order name: SARS-COV-2 RT PCR; Complete Time: 03:32 EDMS 06/06 00:49 Order name: IV Saline Lock; Complete Time: 01:24 pm1 06/06 01:12 Order name: NPO; Complete Time: 01:34 pm1 Administered Medications: 06/05 23:51 CANCELLED (Physician Discretion): Tetanus-Diphtheria Toxoid Adult 0.5 ml IM once bc5 06/06 01:25 Drug: Ancef (cefazolin) 1 grams Route: IVPB; Site: right antecubital; bc5 02:03 Follow up: IV Status: Completed infusion; IV Intake: 50ml bc5 02:03 Drug: NS 0.9% 1000 ml Route: IV; Rate: 125 ml/hr; Site: right antecubital; bc5 04:47 Follow up: IV Status: Infusion continued upon transfer bc5 Disposition: 05:48 Co-signature as Attending Physician, Tal Leahy MD. [facility] Disposition Summary: 06/06/21 01:28 Transfer Ordered Transfer Location: [facility] pm1 Reason: Specialty pm1 Condition: Stable pm1 Problem: new pm1 Symptoms: have improved pm1 Accepting Physician: Luisa Martinez(06/06/21 04:47) 5 Diagnosis - Puncture wound with foreign body, left foot pm1 Forms: - Medication Reconciliation Form pm1 - SBAR form pm1 Signatures: Dispatcher [employer] EDMS Michelle Moura RN RN 1 Fredy Ortega INSULATING MACHINE OPERATOR INSULATING MACHINE OPERATOR pm1 Tal Leahy MD MD 7 Armida Bajwa RN RN 5 Corrections: (The following items were deleted from the chart) 06/05 23:51 23:48 Tetanus-Diphtheria Toxoid Adult 0.5 ml IM once ordered. pm1 bc5 06/06 02:09 01:34 CORONAVIRUS+MR.LAB.BRZ ordered. EDMS EDMS 04:47 01:28 Luisa Martinez pm1 bc5
--- NOTE | 2021-06-06 01:29 | ER ---
Nurse's Notes [facility] Name: Vahe Alexandra Jr Age: 56 yrs Sex: Male : 1965 Arrival Date: 06/05/2021 Time: 23:33 Bed 15 Private MD: Diagnosis: Puncture wound with foreign body, left foot Presentation: 06/05 23:42 Chief complaint: Patient states: while at work, patient shot self with industry nail lp1 accidentally; nail in place to left foot; Seen at work clinic and told nail is in the bone of left foot, unable to remove. Coronavirus screen: At this time, the client does not indicate any symptoms associated with coronavirus-19. Ebola Screen: No symptoms or risks identified at this time. Initial Sepsis Screen: Does the patient meet any 2 criteria? No. Patient's initial sepsis screen is negative. Does the patient have a suspected source of infection? No. Patient's initial sepsis screen is negative. Risk Assessment: Do you want to hurt yourself or someone else? Patient reports no desire to harm self or others. Onset of symptoms was June 05, 2021 at 21:15. 23:42 Method Of Arrival: Wheelchair lp1 23:42 Acuity: MICHAEL 3 lp1 Triage Assessment: 23:49 General: Appears in no apparent distress. Behavior is calm, cooperative, appropriate bc5 for age. Injury Description: Foreign body is located left foot. Historical: - Allergies: 23:44 Aspirin; lp1 23:44 tramadol; lp1 - Home Meds: 23:44 None [Active]; lp1 - PMHx: 23:44 Gastric Reflux; lp1 - PSHx: 23:44 None; lp1 - Immunization history:: Adult Immunizations Last tetanus immunization: up to date June 05, 2021. - Social history:: Smoking status: Patient denies any tobacco usage or history of. Screenin:45 Abuse screen: Denies threats or abuse. Denies injuries from another. Nutritional lp1 screening: No deficits noted. Tuberculosis screening: No symptoms or risk factors identified. 23:50 Fall Risk None identified. No fall in past 12 months (0 pts). No secondary diagnosis (0 bc5 pts). No IV (0 pts). Ambulatory Aid- None/Bed Rest/Nurse Assist (0 pts). Gait- Normal/Bed Rest/Wheelchair (0 pts) Mental Status- Oriented to own ability (0 pts). Total Jackson Fall Scale indicates No Risk (0-24 pts). Assessment: 23:47 Pain: Denies pain. Neuro: No deficits noted. Cardiovascular: No deficits noted. bc5 Respiratory: No deficits noted. Derm: Industrial staple in left foot. Musculoskeletal: No deficits noted. 23:47 Reassessment: Pt reports getting staple stuck in left foot at work. Med clinic at work bc5 took x-rays and reported staple was lodged in bone. Pt denies pain. No bleeding noted at this time. A\T\O x 3, RR is even and unlabored, speaking in clear and complete sentences at this time. 06/06 03:04 Reassessment: Initiated transfer to [facility] with Silvana Alvarez RN. bb 03:17 Reassessment: pt accepted to [facility] by Natalie Williamson MD consult with Erich Butcher DPM room [facility] 1120. 04:10 Reassessment: Attempted to call reports, Nurse and chargeback analyst unavailable at this time. [facility] Will try again. 04:25 Reassessment: Report called to Mamie Omer RN at [facility] , Pt to room [place] [address] 1120. Vital Signs: 06/05 23:42 BP 150 / 106; Pulse 77; Resp 18; Temp 99.5(TE); Pulse Ox 100% on R/A; Weight 78.02 kg lp1 (R); Height 5 ft. 6 in. (167.64 cm); Pain 3/10; 06/06 02:03 BP 142 / 90; Pulse 71; Resp 14; Temp 98.9(O); Pulse Ox 100% on R/A; Pain 0/10; bc5 04:11 BP 145 / 87; Pulse 75; Resp 14; Temp 98.6(O); Pulse Ox 100% on R/A; Pain 0/10; bc5 06/05 23:42 Body Mass Index 27.76 (78.02 kg, 167.64 cm) lp1 ED Course: 06/05 23:33 Patient arrived in ED. bp1 23:44 Triage completed. lp1 23:45 Arm band placed on. lp1 23:46 Armida Bajwa, RN is Primary Nurse. bc5 23:47 Fredy Ortega NP is PHCP. pm1 23:47 Tal Leahy MD is Attending Physician. pm1 23:50 Patient has correct armband on for positive identification. Bed in low position. Call bc5 light in reach. Side rails up X 1. Adult w/ patient. 06/06 00:00 Foot Left 3 View XRAY In Process Unspecified. EDMS 04:11 Inserted saline lock: 20 gauge in right antecubital area, using aseptic technique. bc5 04:11 No provider procedures requiring assistance completed. bc5 04:47 Patient transferred, IV remains in place. bc5 Administered Medications: 06/05 23:51 CANCELLED (Physician Discretion): Tetanus-Diphtheria Toxoid Adult 0.5 ml IM once bc5 06/06 01:25 Drug: Ancef (cefazolin) 1 grams Route: IVPB; Site: right antecubital; bc5 02:03 Follow up: IV Status: Completed infusion; IV Intake: 50ml bc5 02:03 Drug: NS 0.9% 1000 ml Route: IV; Rate: 125 ml/hr; Site: right antecubital; bc5 04:47 Follow up: IV Status: Infusion continued upon transfer bc5 Intake: 02:03 IV: 50ml; Total: 50ml. bc5 Outcome: 01:28 ER care complete, transfer ordered by . pm1 04:47 Transferred by ground EMS to [facility], Transfer form completed. X-rays bc5 sent w/ patient. 04:47 Condition: stable 04:47 Patient left the ED. 5 Signatures: Dispatcher [employer] EDMS Angela Delgado, Michelle Bailey RN, RN RN lp1 Fredy Ortega, TATIANNA TOOL CRIB CLERK pm1 Bertha Bryant Bella, RN RN bc5 Corrections: (The following items were deleted from the chart) 02:09 02:03 CORONAVIRUS+MR.LAB.MANINDERZ drawn and sent. 5 EDMS
[2021-06-06] MEDS ORDERED: NA CHLORIDE 0.9% 1,000 ML ONE (02:11)
[2021-06-06 02:29] LABS: Basophils % 0.8 % (0-1.3); Hematocrit 42.5 % (39.6-49.0); Lymphocytes % 11.8 % (15.3-44.8); MPV 8.4 fL (7.6-11.3); RBC Red Blood Cell Count 4.64 M/uL (4.33-5.43)
[2021-06-06 02:37] LABS: BUN Blood Urea Nitrogen 11 mg/dL (7-18); Bicarbonate 30 mmol/L (21-32); Glucose Level 87 mg/dL (74-106); Potassium 3.9 mmol/L (3.5-5.1); Sodium Level 139 mmol/L (136-145)
[2021-06-06 04:54] VITALS: O2SAT 100
[2021-06-06 04:58] VITALS: BP 145/87; TEMP 98.6
--- NOTE | 2021-06-06 09:47 | RAD REPORT ---
EXAM DESCRIPTION: RAD - Foot Left 3 View - 06/06/2021 12:01 am CLINICAL HISTORY: Left Foot pain status post injury FINDINGS: No fracture or dislocation is seen. Staple within the medial midfoot
== END 2021-06-06 04:47 | disposition short-term general hospital (02) ==
LOC: ER 23:30
DX: S91.332A Puncture wound without foreign body, left foot, initial encounter (principal); Z88.5 Allergy status to narcotic agent; Z88.6 Allergy status to analgesic agent; Z20.822 Contact with and (suspected) exposure to COVID-19
CPT/HCPCS: 96365; 96361; 85025; 80048; 36415; 73630; 99285; U0003; J0690; J7030; J7050

== ENCOUNTER 2022-06-16 21:00 | Emergency (ER) | payer OTHER ==
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
--- NOTE | 2022-06-16 21:59 | RAD REPORT ---
EXAM DESCRIPTION: CT - Head Brain Wo Cont - 06/16/2022 9:47 pm CLINICAL HISTORY: Headache, new or worsening COMPARISON: No comparisons TECHNIQUE: All CT scans are performed using dose optimization technique as appropriate and may inclu de automated exposure control or mA/KV adjustment according to patient size. FINDINGS: No intracranial hemorrhage, hydrocephalus or extra-axial fluid collection.No areas of brai n edema or evidence of midline shift. The paranasal sinuses and mastoids are clear. The calvarium is intact. IMPRESSION: No acute intracranial abnormality.
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
--- NOTE | 2022-06-16 22:09 | EDPHYS ---
Physician Documentation [facility] Name: Vahe Alexandra Jr Age: 57 yrs Sex: Male : 1965 Arrival Date: 06/16/2022 Time: 21:03 Bed 8 Private MD: ED Physician Fredy Bella HPI: 06/16 21:20 This 57 yrs old Black Male presents to ER via Ambulatory with complaints of Headache. rn 21:20 The patient complains of pain to the left frontal area, left side of the back of head, rn left temporal area, left occipital area, left zygomatic area and left cheek. The patient describes the headache as intermittent, waxing and waning, burning/stinging/sensitive. 21:20 Onset: The symptoms/episode began/occurred yesterday. Severity of symptoms: At its rn worst the pain was moderate, in the emergency department the pain is unchanged. Headache History: Denies prior headaches. The symptoms are alleviated by nothing. the symptoms are aggravated by touching scalp and face. The patient has not experienced similar symptoms in the past. The patient has not recently seen a physician. Pt reports burning and sensitive sensation to left scalp and face, began yesterday, no trauma, no hx or famhx of brain aneurysm or tumor. No vision problems, no focal neurological problems. No ataxia or focal weakness. NO vomiting. . Historical: - Allergies: 21:11 tramadol; as6 21:11 Aspirin; as6 - PMHx: 21:11 Gastric Reflux; as6 - PSHx: 21:11 foot; as6 - Immunization history:: Client reports receiving the 2nd dose of the Covid vaccine, moderna Client reports receiving the Aden \T\ Aden single-dose vaccine. - Social history:: Smoking status: Patient denies any tobacco usage or history of. - Family history:: not pertinent. - Hospitalizations: : No recent hospitalization is reported. ROS: 21:20 Constitutional: Negative for fever, chills, and weight loss, Eyes: Negative for injury, rn pain, redness, and discharge, Neck: Negative for injury, pain, and swelling, Cardiovascular: Negative for chest pain, palpitations, and edema, Respiratory: Negative for shortness of breath, cough, wheezing, and pleuritic chest pain, Abdomen/GI: Negative for abdominal pain, nausea, vomiting, diarrhea, and constipation, Back: Negative for injury and pain, MS/Extremity: Negative for injury and deformity, Skin: Negative for injury, rash, and discoloration, Neuro: Negative for weakness, numbness, tingling, and seizure. Exam: 21:20 Constitutional: This is a well developed, well nourished patient who is awake, alert, rn and in no acute distress. Ambulatory to room without difficulty or assistance. Head/Face: Normocephalic, atraumatic. Eyes: Pupils equal round and reactive to light, extra-ocular motions intact. Lids and lashes normal. Conjunctiva and sclera are non-icteric and not injected. Cornea within normal limits. Periorbital areas with no swelling, redness, or edema. Neck: Trachea midline, no masses palpated, and no cervical lymphadenopathy. Supple, full range of motion without nuchal rigidity, or vertebral point tenderness. No Meningismus. Cardiovascular: Regular rate and rhythm. No pulse deficits. Respiratory: No increased work of breathing, no retractions or nasal flaring. Abdomen/GI: Soft, non-tender Skin: Warm, dry MS/ Extremity: Pulses equal, no cyanosis. Neurovascular intact. Full, normal range of motion. Equal circumference. Neuro: Awake and alert, GCS 15, oriented to person, place, time, and situation. Cranial nerves II-XII grossly intact. Motor strength 5/5 in all extremities. Sensory grossly intact. Cerebellar exam normal. Normal gait. + skin sensitivity/pain to touch of left scalp and maxillary/forehead regions. Vital Signs: 21:08 BP 168 / 106; Pulse 71; Resp 19 S; Temp 98.5(O); Pulse Ox 100% on R/A; Weight 76.66 kg as6 (R); Height 5 ft. 6 in. (167.64 cm) (R); Pain 5/10; 22:28 BP 167 / 102; Pulse 61; Resp 15 S; Pulse Ox 99% on R/A; as6 21:08 Body Mass Index 27.28 (76.66 kg, 167.64 cm) as6 [place] Coma Score: 22:07 Eye Response: spontaneous(4). Verbal Response: oriented(5). Motor Response: obeys rn commands(6). Total: 15. MDM: 21:04 Patient medically screened. rn 22:07 Differential diagnosis: migraine, neoplasm, tension headache, trigeminal neuralgia, rn vasomotor headache. Data reviewed: vital signs, nurses notes, radiologic studies, CT scan, and as a result, I will discharge patient. Counseling: I had a detailed discussion with the patient and/or guardian regarding: the historical points, exam findings, and any diagnostic results supporting the discharge/admit diagnosis, radiology results, the need for outpatient follow up, to return to the emergency department if symptoms worsen or persist or if there are any questions or concerns that arise at home. Response to treatment: the patient's symptoms have mildly improved after treatment, and as a result, I will discharge patient. Special discussion: I discussed with the patient/guardian in detail that at this point there is no indication for admission to the hospital. It is understood, however, that if the symptoms persist or worsen the patient needs to return immediately for re-evaluation. Based on the history and exam findings, there is no indication for further emergent testing or inpatient evaluation. I discussed with the patient/guardian the need to see the neurologist for further evaluation of the symptoms. ED course: Neg ct head, normal neuro exam, most consistent with trigeminal neuralgia . 06/16 21:15 Order name: CT Head Brain wo Cont; Complete Time: 22:06 rn Administered Medications: 22:26 Drug: carBAMazepine 200 mg Route: PO; as6 22:29 Follow up: Response: No adverse reaction as6 Disposition Summary: 06/16/22 22:08 Discharge Ordered Location: Home rn Problem: new rn Symptoms: have improved rn Condition: Stable rn Diagnosis - Headache rn - Trigeminal neuralgia rn Followup: rn - With: Private Physician - When: As needed - Reason: Recheck today's complaints, Re-evaluation by your physician Discharge Instructions: - Discharge Summary Sheet rn - Trigeminal Neuralgia rn Forms: - Medication Reconciliation Form rn - Thank You Letter rn - Antibiotic automatic glove turner and former - Prescription Opioid Use rn - Work release form as6 Prescriptions: - Carbamazepine 200 mg Oral Tablet - take 1 tablet by ORAL route every 12 hours; 30 tablet; Refills: 0, Product rn Selection Permitted Signatures: Dispatcher [employer] EDFredy Nova MD MD rn Slawson, Ashby, RN RN as6
[2022-06-16] MEDS ORDERED: carBAMazepine 200 MG TAB ONE (22:23)
[2022-06-16 22:44] VITALS: TEMP 98.5
[2022-06-16 22:45] VITALS: BP 167/102; O2SAT 99
== END 2022-06-16 22:29 | disposition home or self-care (01) ==
LOC: ER 21:00
DX: R51.9 Headache, unspecified (principal); G50.0 Trigeminal neuralgia; Z88.5 Allergy status to narcotic agent; Z88.6 Allergy status to analgesic agent
CPT/HCPCS: 70450; 99283

== ENCOUNTER 2022-07-02 08:48 | Emergency (ER) | payer OTHER ==
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
[2022-07-02] MEDS ORDERED: carBAMazepine 200 MG TAB ONE (09:11)
[2022-07-02] MEDS ORDERED: MORPHINE 2 MG/ML SYR ONE (09:11)
[2022-07-02] MEDS ORDERED: dexAMETHasone 10 MG/ML VIAL ONE (09:11)
--- NOTE | 2022-07-02 09:48 | RAD REPORT ---
EXAM DESCRIPTION: CT - Head Brain Wo Cont - 07/02/2022 9:31 am CLINICAL HISTORY: headache COMPARISON: <Comparisons> TECHNIQUE: All CT scans are performed using dose optimization technique as appropriate and may inclu de automated exposure control or mA/KV adjustment according to patient size. FINDINGS: No intracranial hemorrhage, hydrocephalus or extra-axial fluid collection.No areas of brai n edema or evidence of midline shift. The paranasal sinuses and mastoids are clear. The calvarium is intact. IMPRESSION: No acute intracranial abnormality.
--- NOTE | 2022-07-02 10:15 | EDPHYS ---
Physician Documentation [facility] Name: Vahe Alexandra Jr Age: 57 yrs Sex: Male : 1965 Arrival Date: 07/02/2022 Time: 08:49 Bed 11 Private MD: ED Physician Diana Bonilla HPI: 07/02 09:10 This 57 yrs old Black Male presents to ER via Ambulatory with complaints of Headache. jl9 History of trigeminal neuralgia. . 09:10 The patient complains of pain to the top of head, forehead, right ear and right nondenominational. jl9 The patient describes the headache as aching, constant. Onset: The symptoms/episode began/occurred this morning. Associated signs and symptoms: Pertinent positives: nausea. Severity of symptoms: in the emergency department the pain a " 5" out of "10". Headache History: The patient has had previous headaches and this one is similar to previous episodes. The symptoms are alleviated by nothing. the symptoms are aggravated by nothing. The patient has experienced similar episodes in the past. Historical: - Allergies: 09:01 Aspirin; mb9 09:05 tramadol; mb9 - Home Meds: 09:01 None [Active]; mb9 - PMHx: 09:01 Gastric Reflux; mb9 - PSHx: 09:01 foot; mb9 - Immunization history:: Adult Immunizations up to date. - Social history:: Smoking status: Patient denies any tobacco usage or history of. ROS: 09:10 Constitutional: Negative for fever, chills, and weight loss, Eyes: Negative for injury, jl9 pain, redness, and discharge, ENT: Negative for injury, pain, and discharge, Neck: Negative for injury, pain, and swelling, Cardiovascular: Negative for chest pain, palpitations, and edema, Respiratory: Negative for shortness of breath, cough, wheezing, and pleuritic chest pain, Abdomen/GI: Negative for abdominal pain, nausea, vomiting, diarrhea, and constipation, Back: Negative for injury and pain, : Negative for injury, bleeding, discharge, and swelling, MS/Extremity: Negative for injury and deformity, Skin: Negative for injury, rash, and discoloration. 09:10 Psych: Negative for depression, anxiety, suicide ideation, homicidal ideation, and hallucinations, Allergy/Immunology: Negative for hives, rash, and allergies, Endocrine: Negative for neck swelling, polydipsia, polyuria, polyphagia, and marked weight changes, Hematologic/Lymphatic: Negative for swollen nodes, abnormal bleeding, and unusual bruising. 09:10 Neuro: Positive for headache. Exam: 09:11 Constitutional: This is a well developed, well nourished patient who is awake, alert, jl9 and in no acute distress. Head/Face: Normocephalic, atraumatic. Eyes: Pupils equal round and reactive to light, extra-ocular motions intact. Lids and lashes normal. Conjunctiva and sclera are non-icteric and not injected. Cornea within normal limits. Periorbital areas with no swelling, redness, or edema. ENT: Mucous membranes moist. Neck: Trachea midline, no thyromegaly or masses palpated, and no cervical lymphadenopathy. Supple, full range of motion without nuchal rigidity, or vertebral point tenderness. No Meningismus. Chest/axilla: Normal chest wall appearance and motion. Nontender with no deformity. No lesions are appreciated. Cardiovascular: Regular rate and rhythm with a normal S1 and S2. No gallops, murmurs, or rubs. Normal PMI, no JVD. No pulse deficits. Respiratory: Lungs have equal breath sounds bilaterally, clear to auscultation and percussion. No rales, rhonchi or wheezes noted. No increased work of breathing, no retractions or nasal flaring. Abdomen/GI: Soft, non-tender, with normal bowel sounds. No distension or tympany. No guarding or rebound. No evidence of tenderness throughout. Back: No spinal tenderness. No costovertebral tenderness. Full range of motion. Skin: Warm, dry with normal turgor. Normal color with no rashes, no lesions, and no evidence of cellulitis. MS/ Extremity: Pulses equal, no cyanosis. Neurovascular intact. Full, normal range of motion. Neuro: Awake and alert, GCS 15, oriented to person, place, time, and situation. Cranial nerves II-XII grossly intact. Motor strength 5/5 in all extremities. Sensory grossly intact. Cerebellar exam normal. Normal gait. Psych: Awake, alert, with orientation to person, place and time. Behavior, mood, and affect are within normal limits. Vital Signs: 08:59 BP 168 / 101; Pulse 75; Resp 18; Temp 98.5(O); Pulse Ox 100% on R/A; Weight 76.66 kg; mb9 Height 5 ft. 6 in. (167.64 cm); Pain 04/30; 09:02 BP 168 / 101; Pulse 75; Resp 18; Temp 98.5; Pulse Ox 100% ; mb9 09:59 BP 153 / 69; Pulse 56; Resp 16; Pulse Ox 100% on R/A; mb9 10:34 BP 153 / 98; Pulse 65; Resp 18; Pulse Ox 100% on R/A; Pain 9/10; mb9 08:59 Body Mass Index 27.28 (76.66 kg, 167.64 cm) mb9 MDM: 08:56 Patient medically screened. jl9 09:11 Data reviewed: vital signs, nurses notes. jl9 10:13 Differential diagnosis: cluster headache, migraine. Counseling: I had a detailed jl9 discussion with the patient and/or guardian regarding: the historical points, exam findings, and any diagnostic results supporting the discharge/admit diagnosis, radiology results, the need for outpatient follow up, to return to the emergency department if symptoms worsen or persist or if there are any questions or concerns that arise at home. Response to treatment: the patient's symptoms have markedly improved after treatment. 07/02 09:02 Order name: CT Head Brain wo Cont; Complete Time: 09:50 jl9 Administered Medications: 09:08 CANCELLED (Physician Discretion): Ketorolac 60 mg IM once mb9 09:21 Drug: carBAMazepine 200 mg Route: PO; mb9 09:46 Follow up: Response: No adverse reaction mb9 09:21 Drug: Dexamethasone 10 mg Route: IM; Site: right gluteus; mb9 09:46 Follow up: Response: No adverse reaction mb9 09:22 Drug: morphine 2 mg Route: IM; Site: left gluteus; mb9 09:46 Follow up: Response: No adverse reaction mb9 10:34 Drug: [place] (HYDROcodone-acetaminophen) 10 mg-325 mg 1 tabs Route: PO; mb9 Disposition: 15:32 STAFF ATTESTATION STATEMENT: I was immediately available onsite in the emergency sd2 department for consultation in the care of this patient. I did not see or examine this patient. Diana Bonilla MD. Disposition Summary: 07/02/22 10:14 Discharge Ordered Location: Home jl9 Condition: Stable jl9 Diagnosis - Headache jl9 Followup: jl9 - With: Private Physician - When: 1 - 2 days - Reason: Recheck today's complaints, Continuance of care, Re-evaluation by your physician Discharge Instructions: - Discharge Summary Sheet jl9 - Trigeminal Neuralgia jl9 - Migraine Headache, [id number] jl9 Forms: - Medication Reconciliation Form jl9 - Work release form eb - Thank You Letter jl9 - Antibiotic Education jl9 - Prescription Opioid Use jl9 Prescriptions: - Carbamazepine 200 mg Oral Tablet - take 1 tablet by ORAL route every 12 hours; 20 tablet; Refills: 0, Product jl9 Selection Permitted Signatures: Dispatcher [employer] Elías Miranda jl9 Diana Bonilla MD MD sd2 Marta De Oliveira RN RN mb9 Corrections: (The following items were deleted from the chart) 09:08 09:01 Ketorolac 60 mg IM once ordered. jl9 mb9
--- NOTE | 2022-07-02 10:15 | ER ---
Nurse's Notes [facility] Name: Vahe Alexandra Jr Age: 57 yrs Sex: Male : 1965 Arrival Date: 07/02/2022 Time: 08:49 Bed 11 Private MD: Diagnosis: Headache Presentation: 07/02 08:59 Chief complaint: Patient states: I have a sharp/shooting headache on my right side that mb9 started 45 minutes ago. Pt denies numbness and tingling. Coronavirus screen: Vaccine status: Patient reports receiving the 2nd dose of the covid vaccine. Ebola Screen: No symptoms or risks identified at this time. Initial Sepsis Screen: Does the patient meet any 2 criteria? No. Patient's initial sepsis screen is negative. Does the patient have a suspected source of infection? No. Patient's initial sepsis screen is negative. Risk Assessment: Do you want to hurt yourself or someone else? Patient reports no desire to harm self or others. Onset of symptoms was July 02, 2022. 08:59 Method Of Arrival: Ambulatory mb9 08:59 Acuity: MICHAEL 3 mb9 Triage Assessment: 08:49 Headache History: Denies prior headaches. General: Appears uncomfortable. Pain: mb9 Complains of pain in right restorationism and right ear and forehead and top of head Pain currently is 9 out of 10 on a pain scale. Quality of pain is described as sharp, shooting, Pain began suddenly, Also complains of no other associated symptoms. 08:49 General: Appears Behavior is calm, cooperative, appropriate for age. mb9 Historical: - Allergies: 09:01 Aspirin; mb9 09:05 tramadol; mb9 - Home Meds: 09:01 None [Active]; mb9 - PMHx: 09:01 Gastric Reflux; mb9 - PSHx: 09:01 foot; mb9 - Immunization history:: Adult Immunizations up to date. - Social history:: Smoking status: Patient denies any tobacco usage or history of. Screenin:24 Abuse screen: Denies threats or abuse. Nutritional screening: No deficits noted. mb9 Tuberculosis screening: No symptoms or risk factors identified. Fall Risk None identified. Assessment: 09:02 General: Appears uncomfortable, Behavior is calm, cooperative, appropriate for age. mb9 Pain: Complains of pain in right side of head Pain currently is 9 out of 10 on a pain scale. Quality of pain is described as sharp, shooting, Pain began suddenly. Neuro: Level of Consciousness is awake, alert, obeys commands, Oriented to person, place, time, situation, Appropriate for age Therapeutic Program Worker are equal bilaterally Moves all extremities. Gait is steady, Speech is normal, Facial symmetry appears normal, Pupils are PERRLA, Intact Denies paresthesias numbness. Cardiovascular: Heart tones S1 S2 present Rhythm is regular. Respiratory: Airway is patent Respiratory effort is even, unlabored, Respiratory pattern is regular, symmetrical, Breath sounds are clear bilaterally. GI: Abdomen is flat, Patient currently denies abdominal pain, nausea. : No signs and/or symptoms were reported regarding the genitourinary system. EENT: No signs and/or symptoms were reported regarding the EENT system. Derm: Skin is intact, Skin is dry, Skin is normal, Skin temperature is warm. Musculoskeletal: Range of motion: intact in all extremities. 09:15 Reassessment: pt called to ensure ride home after receiving morphine. mb9 09:36 Reassessment: at bedside. mb9 10:34 Pain: Complains of pain in right restorationism and right ear and forehead and top of head mb9 Quality of pain is described as sharp, shooting. Cardiovascular: Heart tones S1 S2 present. Respiratory: Airway is patent. Derm: Skin is intact, Skin is dry, Skin is normal. Vital Signs: 08:59 BP 168 / 101; Pulse 75; Resp 18; Temp 98.5(O); Pulse Ox 100% on R/A; Weight 76.66 kg; mb9 Height 5 ft. 6 in. (167.64 cm); Pain 9/10; 09:02 BP 168 / 101; Pulse 75; Resp 18; Temp 98.5; Pulse Ox 100% ; mb9 09:59 BP 153 / 69; Pulse 56; Resp 16; Pulse Ox 100% on R/A; mb9 10:34 BP 153 / 98; Pulse 65; Resp 18; Pulse Ox 100% on R/A; Pain 9/10; mb9 08:59 Body Mass Index 27.28 (76.66 kg, 167.64 cm) mb9 ED Course: 08:49 Patient arrived in ED. am2 08:49 Arm band placed on. mb9 08:49 Bed in low position. Call light in reach. Side rails up X 1. mb9 08:56 Elías Su is PHCP. jl9 08:56 Diana Bonilla MD is Attending Physician. jl9 08:59 Marta De Oliveira, RN is Primary Nurse. mb9 09:01 Triage completed. mb9 09:25 No provider procedures requiring assistance completed. mb9 09:32 CT Head Brain wo Cont In Process Unspecified. EDMS 10:35 Patient did not have IV access during this emergency room visit. mb9 Administered Medications: 09:08 CANCELLED (Physician Discretion): Ketorolac 60 mg IM once mb9 09:21 Drug: carBAMazepine 200 mg Route: PO; mb9 09:46 Follow up: Response: No adverse reaction mb9 09:21 Drug: Dexamethasone 10 mg Route: IM; Site: right gluteus; mb9 09:46 Follow up: Response: No adverse reaction mb9 09:22 Drug: morphine 2 mg Route: IM; Site: left gluteus; mb9 09:46 Follow up: Response: No adverse reaction mb9 10:34 Drug: [place] (HYDROcodone-acetaminophen) 10 mg-325 mg 1 tabs Route: PO; mb9 Medication: 09:25 VIS not applicable for this client. mb9 Outcome: 10:14 Discharge ordered by . jl9 10:34 Discharged to home ambulatory. mb9 10:34 Condition: stable 10:34 Discharge instructions given to patient, Instructed on discharge instructions, follow up and referral plans. Demonstrated understanding of instructions, follow-up care, medications, Prescriptions given X 1. 10:35 Patient left the ED. mb9 Signatures: Dispatcher [employer] EDNV Juan Monica 2 Elías Su jl9 Marta De Oliveira, RN RN mb9
[2022-07-02] MEDS ORDERED: HYDROCODONE/APAP 10/325 TAB ONE (10:26)
[2022-07-02 10:40] VITALS: TEMP 98.5; O2SAT 100
[2022-07-02 10:43] VITALS: BP 153/98
== END 2022-07-02 10:35 | disposition home or self-care (01) ==
LOC: ER 08:48
DX: R51.9 Headache, unspecified (principal); Z88.5 Allergy status to narcotic agent; Z88.6 Allergy status to analgesic agent
CPT/HCPCS: 70450; 96372; 99283; J1100; J2270

== ENCOUNTER 2023-06-16 06:00 | Emergency (ER) | payer OTHER ==
--- OUTSIDE RECORDS SUMMARY | 2023-06-16 06:04 | XMS REPORT | Continuity of Care Document ---
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 Outpatient LACEYKELLY GONZALEZ [id number] [place] 11:15:00 11:15:00 Seybol d 2022-09-29 2022-09-29 Outpatient LAWSON LACEY GONZALEZ [id number] [place] 09:00:00 09:00:00 WILLIE Seybol d 2022-09-24 2022-09-24 Outpatient LACEY GONZALEZ [id number] [place] 09:30:00 09:30:00 Seybol d 2022-08-31 2022-08-31 Outpatient ANSYESY LACEY GONZALEZ [id number] [place] 09:30:00 09:30:00 WILLIE Seybol d 2022-08-30 2022-08-30 Outpatient VINNYJovanni LACEY GONZALEZ [id number] [place] 00:00:00 00:00:00 WILLIE Seybol d 2022-08-26 2022-08-26 Outpatient AUGUST LACEY GONZALEZ [id number] [place] 00:00:00 00:00:00 AHMED Seybol d 2022-08-26 2022-08-26 Outpatient AUGUST LACEY GONZALEZ [id number] [place] 00:00:00 00:00:00 AHMED Seybol d 2022-08-22 2022-08-22 Telephone SAVANNA Chavez [id number] [facility] 00:00:00 00:00:00 Parveen HOLLY [id number] ity of Andrea KHAN [id number] [facility] [id number] [facility] [place] [address] [facility] 2022-08-19 2022-08-19 Outpatient DOMIALLISON LACEY GONZALEZ [id number] [place] 00:00:00 00:00:00 KERI Seybol d 2022-08-19 2022-08-19 Orders Doctor BELL [id number] [facility] 00:00:00 00:00:00 Only Unassigned, CHARLES [id number] ity of [facility] [id number] [facility] [id number] [facility] [address] 2022-08-10 2022-08-10 Outpatient PREZAS, LACEY GONZALEZ [id number] [place] 00:00:00 00:00:00 KERI Seybol d 2022-08-04 2022-08-04 Outpatient LAB90 LACEY GONZALEZ [id number] [place] 09:10:00 09:10:00 Seybol d 2022-08-04 2022-08-04 Outpatient PREZAS, LACEY GONZALEZ [id number] [place] 08:15:00 08:15:00 KERI Seybol d 2022-07-27 2022-07-27 Orders Doctor RAY [id number] [facility] 00:00:00 00:00:00 Only Unassigned, CHARLES [id number] [facility] [id number] Angus as [id number] [place] [address] [address] 2022-07-11 2022-07-11 Outpatient PREZAS, LACEY GONZALEZ [id number] [place] 00:00:00 00:00:00 KERI Seybol d 2022-07-07 2022-07-07 Outpatient PREZAS LACEY GONZALEZ [id number] [place] 09:30:00 09:30:00 KERI Seybol d 2022-07-04 2022-07-04 Emergency JoyImtiaz cmobs [id number] [place] 10:15:00 22:39:00 [facility] [id number] [place] [address] [id number] 0524-11-14 2022-07-04 Emergency JoyImtiaz combs KEON [id number] [place] 10:15:00 22:39:00 [facility] [id number] [place] [address] .[id number] 5685-11-14 2022-07-04 Emergency [facility] [id number] [place] 12:51:16 13:59:22 Health 2021-06-06 2021-06-06 Outpatient [facility] [id number] [place] 00:00:00 00:00:00 JINPING [address] 2021-05-21 2021-05-21 Emergency Rhiannon OHJASEN [id number] Univers 11:54:00 13:10:00 Tigre Daniels [id number] i ty fernanda Frazier 4.2.7.2.686 Fan rodas [place] [id number] [place] 084664 [place] 2021-05-21 2021-05-21 Emergency X [facility] [id number] Univers 11:54:00 13:10:00 TIGRE antoniojonathan [facility] 2019-02-28 2019-02-28 Emergency [facility] [id number] [place] 05:08:21 05:08:21 Health 2019-02-27 2019-02-27 Emergency [facility] [id number] [place] 17:09:26 17:09:26 Health 2018-03-10 2018-03-10 Emergency [facility] [id number] [place] 08:25:29 08:25:29 Health 2018-03-10 2018-03-10 Outpatient [facility] [id number] [place] 06:37:44 06:37:44 Health Results Test Description Test Time Test Comments Results Result Comments Source SARS-CoV-2 (COVID-19) RNA [Presence] in Respiratory sp ecimen by 2021-06-06 10:40:07 JORDYN with probe detection Test Item Value Reference Range Interpretation Comme nts SARS-CoV-2 (COVID-19) RNA [Presence] in Respiratory Not detected No t-Detected specimen by JORDYN with probe detection (test code = 10022-6) Whether patient is employed in a healthcare setting (test code = 88026-1) Whether the patient has symptoms related to condition of interest (test code = 88637-2) Patient was hospitalized because of this condition (test code = 07834-4) Whether the patient was admitted to intensive care unit (ICU) for condition of interest (test code = 17225-4) Whether patient resides in a congregate care setting (test code = 01591-6) BETSY MORILLO
[2023-06-16 06:50] LABS: Absolute Lymphocytes (CBC) 2.6 K/uL (0.7-4.9); Hematocrit 41.7 % (39.6-49.0); Lymphocytes % 25.4 % (15.3-44.8); MCV 91.8 fL (80-100); MPV 7.6 fL (7.6-11.3); Platelets 242 thou/uL (152-406); RBC Red Blood Cell Count 4.55 M/uL (4.33-5.43)
[2023-06-16] MEDS ORDERED: ONDANSETRON 4 MG/2 ML VIAL ONE (06:53)
[2023-06-16] MEDS ORDERED: MORPHINE 4 MG/ML SYR ONE (06:53)
[2023-06-16] MEDS ORDERED: ACETAMINOPHEN 500 MG TAB ONE (06:57)
[2023-06-16 07:09] LABS: C-Reactive Protein 3.98 mg/L (<3.00); Potassium 3.7 mEq/L (3.5-5.1); Troponin High Sensitivity 13.4 pg/mL (<58.9)
--- NOTE | 2023-06-16 07:53 | RAD REPORT ---
EXAM DESCRIPTION: RAD - Chest Single View - 06/16/2023 6:43 am CLINICAL HISTORY: left shoulder pain, HTN Chest pain. COMPARISON: Chest Pa And Lat (2 Views) dated 10/16/2018; CHEST PA AND LAT 2 VIEW dated 04/29/2014; Ches t For Pe Angio dated 03/01/2021 FINDINGS: Portable technique limits examination quality. The lungs are mildly emphysematous but grossly clear of acute infiltrate. The heart is normal in size . No displaced fractures. IMPRESSION: No acute intrathoracic process suspected.
--- NOTE | 2023-06-16 07:53 | RAD REPORT ---
EXAM DESCRIPTION: RAD - Shoulder Left 2 View - 06/16/2023 6:43 am CLINICAL HISTORY: PAIN COMPARISON: Chest For Pe Angio dated 03/01/2021 FINDINGS: Small calcific density is seen lateral to the humeral head may represent small loose body or tendon calcification. Mild degenerative changes AC joint and glenohumeral joint. No fracture or di slocation.
--- NOTE | 2023-06-16 08:08 | ER ---
Nurse's Notes [facility] Name: Vahe Alexandra Jr Age: 58 yrs Sex: Male : 1965 Arrival Date: 06/16/2023 Time: 06:00 Bed 4 Private MD: Diagnosis: Pain in left shoulder Presentation: 06/16 06:13 Chief complaint: Patient states: LEFT SHOULDER PAIN SINCE WAKING Y/D, DENIES TRAUMA. bp Coronavirus screen: At this time, the client does not indicate any symptoms associated with coronavirus-19. Ebola Screen: No symptoms or risks identified at this time. Initial Sepsis Screen: Does the patient meet any 2 criteria? No. Patient's initial sepsis screen is negative. Does the patient have a suspected source of infection? No. Patient's initial sepsis screen is negative. Risk Assessment: Do you want to hurt yourself or someone else? Patient reports no desire to harm self or others. Onset of symptoms is unknown. 06:13 Method Of Arrival: Ambulatory bp 06:13 Acuity: MICHAEL 3 bp Triage Assessment: 06:15 General: Appears in no apparent distress. Behavior is calm, cooperative, appropriate bp for age. Pain: Complains of pain in anterior aspect of left shoulder. Historical: - Allergies: 06:15 Aspirin; bp 06:15 tramadol; bp - PMHx: 06:15 Gastric Reflux; bp - PSHx: 06:15 foot; bp - Immunization history:: Adult Immunizations up to date. - Social history:: Smoking status: Patient denies any tobacco usage or history of. - Family history:: not pertinent. - Hospitalizations: : No recent hospitalization is reported. Screenin:18 [facility] ED Fall Risk Assessment (Adult) History of falling in the last 3 months, km8 including since admission No falls in past 3 months (0 pts) Confusion or Disorientation No (0 pts) Intoxicated or Sedated No (0 pts) Impaired Gait No (0 pts) Mobility Assist Device Used No (0 pt) Altered Elimination No (0 pt) Score/Fall Risk Level 0 - 2 = Low Risk Oriented to surroundings, Maintained a safe environment, Educated pt \T\ family on fall prevention, incl call for assistance when getting out of bed, Assessed \T\ reinforced patient's understanding of fall precautions. Abuse screen: Denies threats or abuse. Denies injuries from another. Nutritional screening: No deficits noted. Tuberculosis screening: No symptoms or risk factors identified. Assessment: 06:18 General: Appears in no apparent distress. comfortable, Behavior is calm, cooperative, km8 appropriate for age. Pain: Complains of pain in anterior aspect of left shoulder Quality of pain is described as heavy, Pain began 1 day ago. Neuro: No deficits noted. Alas Agitation-Sedation Scale (RASS): 0 - Alert and Calm Level of Consciousness is awake, alert, obeys commands, Oriented to person, place, time, situation. Cardiovascular: No deficits noted. Denies chest pain, shortness of breath, Capillary refill < 3 seconds Patient's skin is warm and dry. Respiratory: No deficits noted. Airway is patent Respiratory effort is even, unlabored, Respiratory pattern is regular, symmetrical. GI: No deficits noted. No signs and/or symptoms were reported involving the gastrointestinal system. : No deficits noted. No signs and/or symptoms were reported regarding the genitourinary system. EENT: No deficits noted. No signs and/or symptoms were reported regarding the EENT system. Derm: No deficits noted. No signs and/or symptoms reported regarding the dermatologic system. Skin is intact, is healthy with good turgor, Skin is dry, Skin is normal, Skin temperature is warm. Musculoskeletal: Circulation, motion, and sensation intact. Range of motion: limited in left shoulder Reports pain in anterior aspect of left shoulder. 08:15 Reassessment: Patient appears in no apparent distress at this time. Patient and/or tm6 family updated on plan of care and expected duration. Pain level reassessed. Vital Signs: 06:13 BP 151 / 101; Pulse 65; Resp 16; Temp 98; Pulse Ox 100% ; Weight 77.11 kg; Height 5 ft. bp 6 in. ; 06:21 BP 175 / 106; Pulse 65; Resp 18 S; Pulse Ox 98% on R/A; km8 06:30 BP 144 / 100; Pulse 62; Resp 18 S; Pulse Ox 99% on R/A; km8 07:19 BP 165 / 103; Pulse 59; Resp 17; Pulse Ox 98% on R/A; ld1 08:15 BP 151 / 101; Pulse 63; Resp 17; Pulse Ox 97% ; tm6 06:13 Body Mass Index 27.44 (77.11 kg, 167.64 cm) bp ED Course: 06:05 Patient arrived in ED. gm2 06:07 Fredy Bella MD is Attending Physician. rn 06:15 Triage completed. bp 06:15 Arm band placed on. bp 06:18 Josy Wilcox, RN is Primary Nurse. km8 06:18 Patient has correct armband on for positive identification. Bed in low position. Call km8 light in reach. Side rails up X 1. Client placed on continuous cardiac and pulse oximetry monitoring. NIBP monitoring applied. 06:18 Patient maintains SpO2 saturation greater than 95% on room air. km8 06:41 CBC with Diff Sent. km8 06:41 Basic Metabolic Panel Sent. km8 06:41 C-Reactive Protein Sent. km8 06:41 Troponin High Sensitivity Sent. km8 06:41 Inserted saline lock: 20 gauge in right antecubital area, using aseptic technique. km8 Blood collected. 06:45 XRAY Shoulder LEFT 2 view In Process Unspecified. EDMS 06:45 XRAY Chest (1 view) In Process Unspecified. EDMS 07:04 Attending Physician role handed off by Fredy Bella MD rt 07:04 Benji Llamas MD is Attending Physician. rt 07:05 Report given to JOSE SOTO. km8 08:27 Provided Education on: MEDICATION. tm6 08:27 No provider procedures requiring assistance completed. IV discontinued, intact, tm6 bleeding controlled. Administered Medications: 06:45 Drug: Ondansetron IVP 4 mg IVP once; over 2 minutes Route: IVP; Site: right antecubital;pf1 06:47 Not Given (Patient Refused): morphineor iv 2 mg IVP once over 4 mins pf1 06:50 Drug: Acetaminophen PO 1000 mg PO once Route: PO; pf1 Medication: 08:27 VIS not applicable for this client. tm6 Outcome: 08:07 Discharge ordered by . rt 08:27 Discharged to home ambulatory, tm6 08:27 Condition: stable 08:27 Discharge instructions given to patient, Instructed on discharge instructions, follow up and referral plans. medication usage, Demonstrated understanding of instructions, follow-up care, medications, Prescriptions given X 1, 08:28 Patient left the ED. tm6 Signatures: Dispatcher [employer] EDMS Fredy Bella MD MD rn Peltier, Brian, RN RN bp Trixie López RN RN ld1 Benji Llamas MD MD rt Paradise Regalado RN RN pf1 Jocelyn Carver gm2 Josy Wilcox RN RN km8 Linwood Guidry RN RN tm6 Corrections: (The following items were deleted from the chart) 06:21 06:18 Pain: Complains of pain in anterior aspect of left shoulder Pain Quality of pain km8 is described as heavy, Pain began 1 day ago. km8
--- NOTE | 2023-06-16 08:08 | EDPHYS ---
Physician Documentation [facility] Name: Vahe Alexandra Jr Age: 58 yrs Sex: Male : 1965 Arrival Date: 06/16/2023 Time: 06:00 Bed 4 Private MD: ED Physician Benji Llamas HPI: 06/16 06:36 This 58 yrs old Black Male presents to ER via Ambulatory with complaints of Shoulder rn Pain. 06:36 The patient or guardian complains of decreased range of motion, an injury, pain. left rn shoulder. Onset: The symptoms/episode began/occurred yesterday. Modifying factors: the symptoms are alleviated by remaining still, The symptoms are aggravated by movement, rotation of arm. Associated signs and symptoms: Pertinent negatives: abdominal pain, chest pain, neck pain. Severity of symptoms: At their worst the symptoms were moderate, in the emergency department the symptoms are unchanged. The patient has not experienced similar symptoms in the past. The patient has not recently seen a physician. Patient reports left shoulder pain that began yesterday and woke up and more severe pain today. No chest pain or shortness of breath. No obvious injury. Does report at work he lifts and moves and pushes boxes but has done this for a while and never had this problem. No fever. No weakness, no numbness. No abdominal pain or back pain. No neck pain. Historical: - Allergies: 06:15 Aspirin; bp 06:15 tramadol; bp - PMHx: 06:15 Gastric Reflux; bp - PSHx: 06:15 foot; bp - Immunization history:: Adult Immunizations up to date. - Social history:: Smoking status: Patient denies any tobacco usage or history of. - Family history:: not pertinent. - Hospitalizations: : No recent hospitalization is reported. ROS: 06:36 Constitutional: Negative for fever, chills, and weight loss, Eyes: Negative for injury, rn pain, redness, and discharge, Neck: Negative for injury, pain, and swelling, Cardiovascular: Negative for chest pain, palpitations, and edema, Respiratory: Negative for shortness of breath, cough, wheezing, and pleuritic chest pain, Abdomen/GI: Negative for abdominal pain, nausea, vomiting, diarrhea, and constipation, Back: Negative for injury and pain, MS/Extremity: Positive for left shoulder pain Skin: Negative for injury, rash, and discoloration, Neuro: Negative for headache, weakness, numbness, tingling, and seizure, Exam: 06:36 Constitutional: This is a well developed, well nourished patient who is awake, alert, rn holding left shoulder Cardiovascular: Regular rate and rhythm. No pulse deficits. Respiratory: No increased work of breathing, no retractions or nasal flaring. Abdomen/GI: Soft, non-tender Skin: Warm, dry MS/ Extremity: Pulses equal, no cyanosis. Neurovascular intact. Painful range of motion left shoulder with rotation and elevation laterally. No obvious deformity of the left shoulder. No ecchymosis or redness or warmth. Neuro: Awake and alert, GCS 15, oriented to person, place, time, and situation. Cranial nerves II-XII grossly intact. Motor strength 5/5 in all extremities. Sensory grossly intact. 08:08 ECG was reviewed by the Attending Physician. rt Vital Signs: 06:13 BP 151 / 101; Pulse 65; Resp 16; Temp 98; Pulse Ox 100% ; Weight 77.11 kg; Height 5 ft. bp 6 in. ; 06:21 BP 175 / 106; Pulse 65; Resp 18 S; Pulse Ox 98% on R/A; km8 06:30 BP 144 / 100; Pulse 62; Resp 18 S; Pulse Ox 99% on R/A; km8 07:19 BP 165 / 103; Pulse 59; Resp 17; Pulse Ox 98% on R/A; ld1 08:15 BP 151 / 101; Pulse 63; Resp 17; Pulse Ox 97% ; tm6 06:13 Body Mass Index 27.44 (77.11 kg, 167.64 cm) bp MDM: 06:07 Patient medically screened. rn 08:08 Differential diagnosis: Dislocation, septic arthritis, tendinitis. Data reviewed: vital rt signs, nurses notes, lab test result(s), EKG, radiologic studies. I considered the following discharge prescriptions or medication management in the emergency department Medications were administered in the Emergency Department. See MAR. Independent interpretation of the following test(s) in the Emergency Department X-Ray: My interpretation is No dislocation syndrome interpretation of x-ray images. Test considered but Not performed: Labs: No fever, leukocytosis, mildly elevated CRP, not consistent with septic arthritis, arthrocentesis not indicated. Counseling: I had a detailed discussion with the patient and/or guardian regarding the historical points, exam findings, and any diagnostic results supporting the discharge/admit diagnosis, lab results, radiology results, the need for further work-up and treatment in the hospital. Response to treatment: the patient's symptoms have markedly improved after treatment. 06/16 06:28 Order name: CBC with Diff; Complete Time: 06:58 rn 06/16 06:28 Order name: Basic Metabolic Panel; Complete Time: 07:09 rn 06/16 06:28 Order name: C-Reactive Protein; Complete Time: 07:09 rn 06/16 06:28 Order name: Troponin High Sensitivity; Complete Time: 07:09 rn 06/16 06:28 Order name: XRAY Shoulder LEFT 2 view; Complete Time: 08:00 rn 06/16 06:28 Order name: XRAY Chest (1 view); Complete Time: 08:00 rn 06/16 06:59 Order name: EKG; Complete Time: 07:00 rn 06/16 06:28 Order name: IV Start; Complete Time: 06:41 rn 06/16 06:59 Order name: EKG - Nurse/Tech; Complete Time: 07:14 rn EC:08 Rate is 62 beats/min. Rhythm is regular, Normal Sinus Rhythm with No ectopy. QRS [place] rt is Normal. WI interval is normal. QRS interval is normal. QT interval is normal. No Q waves. Clinical impression: NSR w/ Non-specific ST/T Changes. Administered Medications: 06:45 Drug: Ondansetron IVP 4 mg IVP once; over 2 minutes Route: IVP; Site: right antecubital;pf1 06:47 Not Given (Patient Refused): morphineor iv 2 mg IVP once over 4 mins pf1 06:50 Drug: Acetaminophen PO 1000 mg PO once Route: PO; pf1 Disposition Summary: 06/16/23 08:07 Discharge Ordered Notes: Location: Home rt Problem: new rt Symptoms: have improved rt Condition: Stable rt Diagnosis - Pain in left shoulder rt Followup: rt - With: Private Physician - When: 2 - 3 days - Reason: Discharge Instructions: - Shoulder Pain rt - Discharge Summary Sheet pf1 Forms: - Work release form ld1 - Medication Reconciliation Form rt - Thank You Letter rt - Antibiotic Education rt - Prescription Opioid Use rt - Patient Portal Instructions rt - Leadership Thank You Letter rt - SBAR form pf1 Signatures: Dispatcher Andres Fredy Hernandez MD MD rn Erich Chung RN RN bp Benji Llamas MD MD rt Paradise Regalado RN RN pf1
[2023-06-16 08:33] VITALS: TEMP 98
[2023-06-16 08:39] VITALS: BP 151/101; O2SAT 97
--- NOTE | 2023-06-16 15:42 | EKG ---
Test Date: 2023-06-16 Test Time: 07:13:59 Laboratory Animal Facility Supervisor: MAGDALENA MEASUREMENT RESULTS: Intervals: Rate: 62 AK: 152 QRSD: 90 QT: 406 QTc: 412 Denn[place]: P: 45 AK: 152 QRS: 34 T: 2 INTERPRETIVE STATEMENTS: Normal sinus rhythm Nonspecific T wave abnormality Abnormal ECG Compared to ECG 03/01/2021 13:15:16 Sinus bradycardia no longer present Sinus arrhythmia no longer present Ventricular premature complex(es) no longer present T-wave abnormality still present Electronically Signed On 06-16-23 15:40:56 CDT by Keyshawn Jain
== END 2023-06-16 08:28 | disposition home or self-care (01) ==
LOC: ER 06:00
DX: M25.512 Pain in left shoulder (principal); K21.9 Gastro-esophageal reflux disease without esophagitis; Z88.6 Allergy status to analgesic agent; Z88.5 Allergy status to narcotic agent
CPT/HCPCS: 36415; 71045; 80048; 84484; 85025; 86140; 93005; 96374; 99285; J2405

== ENCOUNTER 2024-10-27 18:57 | Emergency (ER) | payer OTHER ==
[2024-10-27] MEDS ORDERED: ONDANSETRON 4 MG/2 ML VIAL ONE (19:29)
[2024-10-27] MEDS ORDERED: MAGNES/ALUMIN/SIMET 30ML UCUP ONE (19:30)
[2024-10-27] MEDS ORDERED: LIDOCAINE VISCOUS 2% 10ML ORAL SOLN ONE (19:30)
[2024-10-27] MEDS ORDERED: NA CHLORIDE 0.9% 1,000 ML ONE (19:31)
[2024-10-27] MEDS ORDERED: FAMOTIDINE 20 MG/2 ML VIAL IV ONE (19:31)
[2024-10-27 19:57] LABS: Absolute Eosinophils 0.1 K/uL (0-0.5); Absolute Lymphocytes (CBC) 2.7 K/uL (0.7-4.9); Absolute Monocytes 0.5 K/uL (0.1-1.3); Absolute Neutrophil 2.7 K/uL (1.8-8.0); Basophils % 0.5 % (0-1.3); Eosinophils % 1.5 % (0-4.4); Hematocrit 42.5 % (39.6-49.0); Hemoglobin 14.4 g/dL (13.6-17.9); Lymphocytes % 44.6 % (15.3-44.8); MCH 30.9 pg (27.0-35.0); MCV 90.9 fL (80-100); MPV 7.7 fL (7.6-11.3); Monocytes % 8.1 % (3.3-12.3); Neutrophils % 45.3 % (41.7-73.7); Nucleated Red Blood Cells % 0.1 % (0-0); Platelets 243 thou/uL (152-406); RBC Red Blood Cell Count 4.67 M/uL (4.33-5.43); Red Cell Distribution Width 13.8 % (12.1-15.2)
[2024-10-27 20:16] LABS: Albumin 3.7 g/dL (3.4-5.0); Anion Gap 9.8 mEq/L (5.0-15.0); Bilirubin Total 0.4 mg/dL (0.2-1.0); Globulin 3.8 g/dL (2.3-3.5); Potassium 3.8 mEq/L (3.5-5.1); Protein, Total 7.5 g/dL (6.4-8.2)
--- NOTE | 2024-10-27 20:58 | RAD REPORT ---
EXAMINATION: CT ABDOMEN AND PELVIS WITH CONTRAST CLINICAL INDICATION: Abdominal pain TECHNIQUE: CT abdomen and pelvis was performed, after the administration of 100 cc Isovue-300.. Sagit michelle and coronal reconstructions were obtained. One or more of the following dose reduction techniques were used: Automated exposure control, adjustment of the mA and kV according to patient si ze, and iterative reconstruction. Unless otherwise specified, incidental findings do not require dedicated imaging follow-up. [id number]. Oral contrast was not given which limits evaluation of bowel and appendix. COMPARISON: .2019 FINDINGS: Borderline fatty liver. spleen, pancreas, adrenals and kidneys appear unremarkable No evidence of diverticulitis.. 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 Unchanged from prior exam : IMPRESSION: Moderate amount of stool throughout the colon.
--- NOTE | 2024-10-27 21:28 | ER ---
Nurse's Notes [facility] Name: Vahe Alexandra Jr Age: 59 yrs Sex: Male : 1965 Arrival Date: 10/27/2024 Time: 18:57 Bed 18 Private MD: Diagnosis: Epigastric pain Presentation: 10/27 19:10 Chief complaint: Patient states: "I have a fatty liver and it has been really bothering vc1 me and keeping me up at night". Coronavirus screen: Client denies travel out of the [place] in the last 14 days. At this time, the client does not indicate any symptoms associated with coronavirus-19. Ebola Screen: Patient negative for fever greater than or equal to 101.5 degrees Fahrenheit, and additional compatible Ebola Virus Disease symptoms Patient denies exposure to infectious person. Patient denies travel to an Ebola-affected area in the 21 days before illness onset. No symptoms or risks identified at this time. Initial Sepsis Screen: Does the patient meet any 2 criteria? No. Patient's initial sepsis screen is negative. Does the patient have a suspected source of infection? No. Patient's initial sepsis screen is negative. Risk Assessment: Do you want to hurt yourself or someone else? Patient reports no desire to harm self or others. Note For 2 months. Onset of symptoms is unknown. Care prior to arrival: None. Activity prior to arrival: None. 19:10 Method Of Arrival: Ambulatory vc1 19:10 Acuity: MICHAEL 3 vc1 Triage Assessment: 19:14 General: Appears in no apparent distress. uncomfortable, slender, well groomed, well vc1 developed, well nourished, Behavior is calm, cooperative, appropriate for age. Pain: Complains of pain in epigastric area and left upper quadrant Pain radiates to back Pain currently is 8 out of 10 on a pain scale. Quality of pain is described as sharp. EENT: No deficits noted. No signs and/or symptoms were reported regarding the EENT system. Neuro: Level of Consciousness is awake, alert, obeys commands, Oriented to person, place, time, situation, Appropriate for age. Cardiovascular: Capillary refill < 3 seconds Patient's skin is warm and dry. Respiratory: Airway is patent Respiratory effort is even, unlabored, Respiratory pattern is regular, symmetrical. GI: Abdomen is flat, non-distended, Reports upper abdominal pain, epigastric pain. : No deficits noted. No signs and/or symptoms were reported regarding the genitourinary system. Derm: Skin is intact, is healthy with good turgor, Skin is dry, Skin is normal, Skin temperature is warm. Musculoskeletal: Circulation, motion, and sensation intact. Range of motion: intact in all extremities. Historical: - Allergies: 19:12 Aspirin; vc1 19:12 tramadol; vc1 - Home Meds: 19:12 None [Active]; vc1 - PMHx: 19:12 Gastric Reflux; Fatty liver; vc1 - PSHx: 19:12 foot; vc1 - Immunization history:: Client reports receiving the 2nd dose of the Covid vaccine, Flu vaccine is up to date. - Infectious Disease History:: Denies. - Social history:: Smoking status: Patient denies any tobacco usage or history of. - Family history:: not pertinent. Screenin:13 [facility] ED Fall Risk Assessment (Adult) History of falling in the last 3 months, vc1 including since admission No falls in past 3 months (0 pts) Confusion or Disorientation No (0 pts) Intoxicated or Sedated No (0 pts) Impaired Gait No (0 pts) Mobility Assist Device Used No (0 pt) Altered Elimination No (0 pt) Score/Fall Risk Level 0 - 2 = Low Risk Oriented to surroundings, Maintained a safe environment, Educated pt \\T\\ family on fall prevention, incl call for assistance when getting out of bed. Abuse screen: Denies threats or abuse. Nutritional screening: No deficits noted. Tuberculosis screening: No symptoms or risk factors identified. Assessment: 19:50 General: Appears uncomfortable, Behavior is calm, cooperative. Pain: Complains of pain ha1 in epigastric area Pain currently is 8 out of 10 on a pain scale. Quality of pain is described as burning. Neuro: Level of Consciousness is awake, alert, obeys commands, Oriented to person, place, time, situation. Cardiovascular: Capillary refill < 3 seconds Patient's skin is warm and dry. Respiratory: Airway is patent Respiratory effort is even, unlabored, Respiratory pattern is regular, symmetrical. GI: Abdomen is round non-distended, Bowel sounds present X 4 quads. Abd is soft and non tender X 4 quads. Reports epigastric pain. : No signs and/or symptoms were reported regarding the genitourinary system. Derm: Skin is pink, warm \\T\\ dry. Musculoskeletal: Circulation, motion, and sensation intact. Range of motion: intact in all extremities. 20:55 Reassessment: Patient and/or family updated on plan of care and expected duration. Pain ha1 level reassessed. Patient is alert, oriented x 3, equal unlabored respirations, skin warm/dry/pink. Patient states feeling better. Patient states symptoms have improved. Vital Signs: 19:10 BP 135 / 92; Pulse 98; Resp 14; Temp 98; Pulse Ox 98% ; Weight 69.4 kg; Height 5 ft. 6 vc1 in. ; Pain 8/10; 20:00 BP 128 / 87; Pulse 90; Resp 17 S; Pulse Ox 97% on R/A; ha1 21:00 BP 131 / 87; Pulse 91; Resp 17 S; Temp 97.6; Pulse Ox 98% on R/A; ha1 19:10 Body Mass Index 24.69 (69.40 kg, 167.64 cm) vc1 19:10 Pain Scale: Adult vc1 ED Course: 19:02 Patient arrived in ED. im 19:03 Benji Llamas MD is Attending Physician. rt 19:12 Triage completed. vc1 19:13 Arm band placed on right wrist. vc1 19:13 Patient has correct armband on for positive identification. Provided Education on: vc1 tests. 19:45 Inserted saline lock: 20 gauge in right antecubital area, using aseptic technique. ha1 Blood collected. Flushed with 10 mL NS. 19:47 Kandace Avalos, JOSE is Primary Nurse. ha1 19:48 CBC with Diff Sent. ha1 19:48 CMP Sent. ha1 19:48 Lipase Sent. ha1 20:47 CT Abd/Pelvis - IV Contrast Only In Process Unspecified. EDMS 21:48 No provider procedures requiring assistance completed. IV discontinued, intact, ha1 bleeding controlled, No redness/swelling at site. Pressure dressing applied. Administered Medications: 19:42 Drug: NS 0.9% IV 1000 ml IV at 1 bolus Per protocol; to be given as a bolus over 60 ha1 minutes Route: IV; Rate: 1 bolus; Site: right antecubital; 21:46 Follow up: Response: No adverse reaction; IV Status: Completed infusion; IV Intake: ha1 1000ml 19:44 Drug: Ondansetron IVP 4 mg IVP once; over 2 minutes Route: IVP; Site: right antecubital;ha1 20:10 Follow up: Response: No adverse reaction; Marked relief of symptoms ha1 20:20 Follow up: Response: No adverse reaction; Marked relief of symptoms ha1 19:47 Drug: Famotidine IVP 20 mg IVP once; dilute with 10 mL 0.9% NaCl; give over 2 minutes ha1 Route: IVP; Site: right antecubital; 20:20 Follow up: Response: No adverse reaction; Marked relief of symptoms ha1 19:47 Drug: GI Cocktail without - (Maalox PO 30 ml, Lidocaine Mucous Membrane 2 % 15 ha1 ml) PO once Route: PO; 20:10 Follow up: Response: No adverse reaction; Marked relief of symptoms ha1 Medication: 19:14 VIS not applicable for this client. vc1 Intake: 21:46 IV: 1000ml; Total: 1000ml. ha1 Outcome: 21:27 Discharge ordered by . rt 21:48 Discharged to home ambulatory, with family, ha1 21:48 Condition: stable 21:48 Discharge instructions given to patient, Instructed on discharge instructions, follow up and referral plans. medication usage, Demonstrated understanding of instructions, follow-up care, medications, Prescriptions given X 1, 21:49 Patient left the ED. ha1 Signatures: Dispatcher [employer] EDMS Blanka Sylvester RN RN 1 Kandace Avalos RN RN ha1 Benji Llamas MD MD rt [place]
--- NOTE | 2024-10-27 21:28 | EDPHYS ---
Physician Documentation [facility] Name: Vahe Alexandra Jr Age: 59 yrs Sex: Male : 1965 Arrival Date: 10/27/2024 Time: 18:57 Bed 18 Private MD: ED Physician Benji Llamas HPI: 10/27 20:44 This 59 yrs old Black Male presents to ER via Ambulatory with complaints of Abdominal rt Pain, Low Back Pain. 20:44 Patient presents to the ED with epigastric pain radiating to the back with associated rt nausea starting yesterday. Symptoms worsened after he eats. He is concerned for reflux. Denies other acute complaints at this time, symptoms are moderate in severity, no other aggravating or alleviating factors.. Historical: - Allergies: 19:12 Aspirin; vc1 19:12 tramadol; vc1 - Home Meds: 19:12 None [Active]; vc1 - PMHx: 19:12 Gastric Reflux; Fatty liver; vc1 - PSHx: 19:12 foot; vc1 - Immunization history:: Client reports receiving the 2nd dose of the Covid vaccine, Flu vaccine is up to date. - Infectious Disease History:: Denies. - Social history:: Smoking status: Patient denies any tobacco usage or history of. - Family history:: not pertinent. ROS: 20:44 Constitutional: Negative for fever, chills, and weight loss, Cardiovascular: Negative rt for chest pain, palpitations, and edema, Respiratory: Negative for shortness of breath, cough, wheezing, and pleuritic chest pain, MS/Extremity: Negative for injury and deformity, Skin: Negative for injury, rash, and discoloration, Neuro: Negative for headache, weakness, numbness, tingling, and seizure, 20:44 Abdomen/GI: Positive for abdominal pain, nausea, Exam: 20:44 Constitutional: This is a well developed, well nourished patient who is awake, alert, rt and in no acute distress. Head/Face: Normocephalic, atraumatic. Chest/axilla: Normal chest wall appearance and motion. Nontender with no deformity. No lesions are appreciated. Cardiovascular: Regular rate and rhythm with a normal S1 and S2. No gallops, murmurs, or rubs. Normal PMI, no JVD. No pulse deficits. Respiratory: Lungs have equal breath sounds bilaterally, clear to auscultation and percussion. No rales, rhonchi or wheezes noted. No increased work of breathing, no retractions or nasal flaring. Skin: Warm, dry with normal turgor. Normal color with no rashes, no lesions, and no evidence of cellulitis. MS/ Extremity: Pulses equal, no cyanosis. Neurovascular intact. Full, normal range of motion. Neuro: Awake and alert, GCS 15, oriented to person, place, time, and situation. Cranial nerves II-XII grossly intact. Motor strength 5/5 in all extremities. Sensory grossly intact. Cerebellar exam normal. Normal gait. 20:44 Abdomen/GI: Mild tenderness to the epigastrium without rebound, guarding, distention, Vital Signs: 19:10 BP 135 / 92; Pulse 98; Resp 14; Temp 98; Pulse Ox 98% ; Weight 69.4 kg; Height 5 ft. 6 vc1 in. ; Pain 8/10; 20:00 BP 128 / 87; Pulse 90; Resp 17 S; Pulse Ox 97% on R/A; ha1 21:00 BP 131 / 87; Pulse 91; Resp 17 S; Temp 97.6; Pulse Ox 98% on R/A; ha1 19:10 Body Mass Index 24.69 (69.40 kg, 167.64 cm) vc1 19:10 Pain Scale: Adult vc1 MDM: 19:18 Medical Screening Exam initiated rt 22:53 Differential diagnosis: Gastritis, bowel obstruction, pancreatitis, cholelithiasis, rt cholecystitis. Data reviewed: vital signs, nurses notes, lab test result(s), radiologic studies. I considered the following discharge prescriptions or medication management in the emergency department Medications were administered in the Emergency Department. See MAR. Independent interpretation of the following test(s) in the Emergency Department CT Scan: My interpretation is No bowel obstruction seen on interpretation of CT scan images. Care significantly affected by the following chronic conditions: Steatohepatitis. Counseling: I had a detailed discussion with the patient and/or guardian regarding the historical points, exam findings, and any diagnostic results supporting the discharge/admit diagnosis, lab results, radiology results, the need for outpatient follow up, to return to the emergency department if symptoms worsen or persist or if there are any questions or concerns that arise at home. Response to treatment: the patient's symptoms have markedly improved after treatment. 10/27 19:18 Order name: CBC with Diff; Complete Time: 20:29 rt 10/27 19:18 Order name: CMP; Complete Time: 20:29 rt 10/27 19:18 Order name: Lipase; Complete Time: 20:29 rt 10/27 19:18 Order name: CT Abd/Pelvis - IV Contrast Only; Complete Time: 21:00 rt 10/27 19:18 Order name: IV Saline Lock; Complete Time: 19:48 rt 10/27 19:18 Order name: Labs collected and sent; Complete Time: 19:48 rt Administered Medications: 19:42 Drug: NS 0.9% IV 1000 ml IV at 1 bolus Per protocol; to be given as a bolus over 60 ha1 minutes Route: IV; Rate: 1 bolus; Site: right antecubital; 21:46 Follow up: Response: No adverse reaction; IV Status: Completed infusion; IV Intake: ha1 1000ml 19:44 Drug: Ondansetron IVP 4 mg IVP once; over 2 minutes Route: IVP; Site: right antecubital;ha1 20:10 Follow up: Response: No adverse reaction; Marked relief of symptoms ha1 20:20 Follow up: Response: No adverse reaction; Marked relief of symptoms ha1 19:47 Drug: Famotidine IVP 20 mg IVP once; dilute with 10 mL 0.9% NaCl; give over 2 minutes ha1 Route: IVP; Site: right antecubital; 20:20 Follow up: Response: No adverse reaction; Marked relief of symptoms ha1 19:47 Drug: GI Cocktail without - (Maalox PO 30 ml, Lidocaine Mucous Membrane 2 % 15 ha1 ml) PO once Route: PO; 20:10 Follow up: Response: No adverse reaction; Marked relief of symptoms ha1 Disposition Summary: 10/27/24 21:27 Discharge Ordered Notes: Location: Home rt Problem: new rt Symptoms: have improved rt Condition: Stable rt Diagnosis - Epigastric pain rt Followup: rt - With: Private Physician - When: 2 - 3 days - Reason: Discharge Instructions: - Discharge Summary Sheet rt - Abdominal Pain, Adult rt Forms: - Medication Reconciliation Form rt - Antibiotic Education rt - Prescription Opioid Use rt - Patient Portal Instructions rt - Leadership Thank You Letter rt Prescriptions: - Protonix 40 mg Oral Tablet - take 1 tablet ORAL route once daily; 30 tablet; Refills: 0, Product Selection rt Permitted Signatures: Dispatcher [employer] Blanka Humphreys RN RN vc1 Kandace Avalos RN RN ha1 Benji Llamas MD MD rt
[2024-10-27 22:18] VITALS: BP 131/87; TEMP 97.6; O2SAT 98
== END 2024-10-27 21:49 | disposition home or self-care (01) ==
LOC: ER 18:57
DX: R10.13 Epigastric pain (principal)
CPT/HCPCS: 96361; 85025; 36415; 83690; 80053; 74177; 96375; 96374; 99284; Q9967; J2405; J7030